=== PATIENT | female | born 1960 | race Caucasian/White ===

== ENCOUNTER 2019-06-25 20:44 | Observation (INO) | payer MEDICARE, SELFPAY ==
[2019-06-25] VITALS (7 sets, daily range): BP systolic 117–142; BP diastolic 49–62; PULSE 49–99; RESP 16–97; TEMP 36.9; O2SAT 93–100
--- NOTE | ~2019-06-25 | CT_ITS ---
EXAMINATION: CT brain wo con DATE: 06/25/2019 22:00 INDICATION: Altered mental status TECHNIQUE: Computed tomography (CT) of the head was performed without intravenous contrast. The dose- length product was 605.33 mGy-cm. The mA was adjusted according to patient size. Iterative reconstruc tion technique was employed. COMPARISON: None FINDINGS: There are surgical changes of right cataract surgery with o'clock, drainage device. No acut e intracranial hemorrhage, infarction, mass or mass effect. There are scattered mild periventricular and subcortical white matter changes, most likely related to small vessel ischemic disease (microangi opathy). No ventriculomegaly or midline shift. Basilar cisterns are patent. Minimal mucosal thickenin g right maxillary sinus. Mastoids are pneumatized. No depressed skull fractures. IMPRESSION: 1. No acute intracranial abnormality. Reviewed, dictated and finalized at location A. [employer]
--- NOTE | ~2019-06-25 | XR_ITS ---
EXAMINATION: XR chest 1V portable 06/25/2019 22:08 INDICATION: Cough and shortness of breath PROCEDURE: AP portable chest COMPARISON: Comparison to multiple prior studies sequentially, with oldest reviewed study dated 12/22. FINDINGS: The lungs are clear. The cardiomediastinal silhouette is within normal limits. There are no pleural effusions. There is no pneumothorax suspected. Stable appearance to spinal stimulator le ads. IMPRESSION: 1: NO ACUTE CARDIOPULMONARY DISEASE. Reviewed, dictated and finalized at location A. [employer] SPECIALIST
--- NOTE | 2019-06-25 21:00 | ED.SOB ---
HPI - SOB/Dyspnea General Chief Complaint: Shortness of Breath/Dyspnea Stated Complaint: cant breath, sick all week Time Seen by Provider: 06/25/19 21:01 Source: patient and family Mode of arrival: wheelchair Limitations: no limitations History of Present Illness HPI Narrative: A 58 y/o female presents to the ED with c/o SOB and generalized weakness. Pt was recently playing [email or web address] with several friends and family members who are sick with the same symptoms. Pt was started on steroids and Tamaflu by her PCP. Per family, pt has also been confused and seeing things. She reports nausea and being a former smoker, but denies a fever and vomiting. Related Data Home Medications Medication Instructions Recorded Confirmed albuterol sulfate 90 mcg/actuation 1 inhalation INHALATION Q4H 05/08/19 aerosol inhaler alprazolam 0.5 mg tablet 0.5 mg PO TID 05/08/19 codeine sulfate 30 mg tablet 90 mg PO Q4H tablet 05/08/19 hydrochlorothiazide 25 mg tablet 25 mg PO DAILY 05/08/19 quetiapine 50 mg tablet 50 mg PO BID 05/08/19 travoprost 0.004 % eye drops 1 drop EACH EYE QPM 05/08/19 Allergies Allergy/AdvReac Type Severity Reaction Status Date / Time nut - unspecified Allergy Intermediate Anaphylacti Verified 05/16/19 08:33 c amlodipine Allergy Mild swelling Verified 05/16/19 08:33 loratadine Allergy Mild rash and Verified 05/16/19 08:33 SOB lamotrigine Allergy Unknown Other Verified 05/16/19 08:33 montelukast Allergy Unknown Rash Verified 05/16/19 08:33 Cat Dander Allergy Mild Unknown Uncoded 05/16/19 08:33 Dog Dander Allergy Mild Unknown Uncoded 05/16/19 08:33 UNKNOWN ANESTHESIA MED Allergy Unknown Unknown Uncoded 05/16/19 08:33 Review of Systems Review of Systems: All systems reviewed & are unremarkable except as noted in HPI and below Constitutional: Constitutional: Denies fever(s) and Reports weakness (generalized) Respiratory: Respiratory: Reports dyspnea Gastrointestinal: Gastrointestinal: Reports nausea and Denies vomiting Neurologic: Comments: Reports: confusion PMFSH Past Medical History Medical History Anxiety Arthritis Asthma Back injury Broken toe Cataracts, bilateral CHF (congestive heart failure) Depression Full dentures GERD (gastroesophageal reflux disease) Glaucoma History of angina Liver enlargement Migraine Pleurisy Pneumonia Short-term memory loss Sinus problem Spinal cord stimulator status UTI (urinary tract infection) Surgical History Surgical History H/O left knee surgery H/O spinal fusion History of tonsillectomy Family History Family History Father Family history of coronary artery disease Grandparent Family history of coronary artery disease Social History Social History (Updated 06/25/19 @ 21:11 by Iqra Jaramillo) Smoking status: Former smoker Second hand tobacco smoke exposure: No Alcohol intake: never Comments PCP: Dr. Stone Exam Narrative: Exam Narrative: APPEARANCE: No acute distress, nontoxic, resting in bed EYES: PERRL HEENT: Normocephalic, atraumatic, bilateral turbinates boggy, mild erythema no exudate posterior pharynx, oral mucosa dry RESPIRATORY: No respiratory distress wheezing in the bilateral upper lung ortega, no rhonchi or rales CARDIOVASCULAR: Regular rate and rhythm without murmurs rubs or gallops. ABDOMINAL: Soft, nontender, nondistended, no rebound or guarding MUSCULOSKELETAl: Moves all extremities. No clubbing, cyanosis or edema. NEURO: Awake and alert x 3. Following commands, speech normal, no focal deficits SKIN:: Warm, dry. No rashes lesions or abrasions PSYCHIATRIC: Normal affect/mood, Course Course Emergency Course: Patient was started on Tamiflu 2 days ago Discussed with patient and family results of workup and diagnosis. Discussed need for admission. Patient and fam
--- NOTE | 2019-06-25 21:02 | ECG_ITS ---
Measurements Intervals [place] Rate: 50 P: 3 MI: 180 QRS: 1 QRSD: 90 T: 17 QT: 518 QTc: 477 Interpretive Statements SINUS BRADYCARDIA VOLTAGE CRITERIA FOR LVH PROLONGED QT INTERVAL BASELINE WANDER- I, II, AVR, AVL, AVF, V1 ABNORMAL ECG Electronically Signed On 06-26-2019 7:14:17 TREASURY ACCOUNTANT by Poli Jama D.O.
[2019-06-25] MEDS: ALBUTEROL SULFATE NEB 2.5 MG/0.5 ML INH 5 MG INHALATION ×2 (21:24→23:36)
[2019-06-25] MEDS: IPRATROPIUM BR 0.02% INH SOLN 0.5 MG/2.5 ML VIAL INHALATION ×2 (21:25→23:36)
[2019-06-25] MEDS: SODIUM CHLORIDE 0.9% IV 1,000 ML 999 ML IV CONT (21:28)
[2019-06-25 21:36] LABS: Basophils Percent Auto 0.5 % (0.2-1.2); Eosinophils Absolute Auto 0.4 K/mm3 (0-0.3); Eosinophils Percent Auto 6.5 % (0-4.4); Hematocrit 40.9 % (37.0-47.0); Hemoglobin 13.1 g/dL (12.0-15.0); Immature Granulocyte Absolute 0.01 K/mm3 (0.00-0.031); Immature Granulocyte Percent A 0.2 % (0-0.5); Immature Platelet Fraction Pct 3.8 % (0.9-11.2); Lymphocytes Absolute Auto 2.16 K/mm3 (0.9-3.2); Mean Corpuscular Hemoglobin 31.3 pg (26-34); Mean Corpuscular Volume 97.6 fl (80-100); Mean Platelet Volume 11.1 fl (7.4-10.4); Monocytes Absolute Auto 0.5 K/mm3 (0.1-0.6); Monocytes Percent Auto 8.9 % (2.6-8.5); Neutrophils Absolute Auto 2.7 K/mm3 (1.3-6.7); Neutrophils Percent Auto 46.9 % (45.5-73.1); Platelet Count Result 94 k/mm3 (150-375); Red Blood Count 4.19 M/mm3 (4.2-5.4); Red Cell Distribution Width 15.5 % (11.5-14.5); White Blood Count 5.8 K/mm3 (4.5-10.0)
[2019-06-25 21:37] LABS: Alveolar/Arterial O2 Gradient 36.3 mmHg; Base Excess ABG -1.1 mEq/l (+/-2.0); Fractional Inspired Oxygen 21 %; HCO3 ABG 23.8 mEq/l (22.0-26.0); Oxygen Content ABG 17.1 %vol (16.0-22.0); Oxygen Saturation ABG 92.6 % (95.0-100.0); PCO2 ABG 40.4 mmHg (35.0-45.0); PO2 ABG 65.1 mmHg (80.0-100.0); Total Hemoglobin 13.2 g/dL (12.0-18.0); pH ABG 7.388 (7.350-7.450)
[2019-06-25 21:38] LABS: Device ROOM AIR; Modified Allen's Test Pass; Site Drawn LEFT RADIAL
[2019-06-25 21:39] LABS: Add Urine Microscopic? YES; Appearance Urine Clear (Clear); Bacteria Urine Trace /hpf; Bilirubin Urine Negative (Negative); Blood Urine Negative (Negative); Color Urine Yellow (Yellow); Glucose Urine UA Negative (Negative); Hyaline Casts Urine 15-19 /lpf; Ketones Urine Negative (Negative); Leukocyte Esterase Ur Negative LEU/UL (Negative); Mucus Urine Moderate /lpf; Nitrate Urine Negative (Negative); Protein Urine Negative (Negative); RBC Urine 0-2 /hpf (0-2); Specific Grav Ur 1.018 (1.001-1.035); Squamous Epithelial Cell Urine Rare /hpf (Few); WBC Urine 0-3 /hpf
[2019-06-25 21:44] LABS: INR 1.5; Lactic Acid Reflex 2.4 mmol/L (0.7-2.1); Prothrombin Time 17.7 Seconds (11.1-14.7)
[2019-06-25 21:45] LABS: Alanine Aminotransferase 19 U/L (4-35); Alkaline Phosphatase 92 U/L (38-126); Aspartate Amino Transferase 47 U/L (14-36); Bilirubin,Total 1.6 mg/dL (0.2-1.3); Blood Urea Nitrogen 9 mg/dL (7-17); Calcium 7.9 mg/dL (8.4-10.2); Carbon Dioxide 22 mmol/L (22-30); Chloride 103 mmol/L (98-107); Estimated CRCL calculation 69 ml/min; Estimated Glomerular Filt Rate > 60; Glucose 127 mg/dL (65-105); Potassium 3.9 mmol/L (3.4-5.0); Sodium 138 mmol/L (137-145)
[2019-06-25 21:57] LABS: NT Pro B Type Natriuretic Pept 929 PG/ML (5-100); Troponin I < 0.012 ng/mL (0.000-0.034)
[2019-06-25 23:58] LABS: Ammonia 13 umol/L (9-30)
[2019-06-26] VITALS (13 sets, daily range): BP systolic 106–153; BP diastolic 42–89; PULSE 58–75; RESP 14–22; TEMP 36.7–37.1; O2SAT 94–96; BMI 32.3
[2019-06-26 00:32] LABS: Reflex Lactic Acid Yes or No Add Lactic
[2019-06-26 00:59] LABS: Lactic Acid 3.2 mmol/L (0.7-2.1)
--- NOTE | 2019-06-26 01:20 | ADMGEN ---
This patient, Melissa Redding, was admitted to [facility] Surg Room 303-01. Patient/family oriented to hospital policies and general routines including ID bracelet, bed and alarms, visiting hours, pain management, procedures, bathroom and other care routines, personal items, smoking policy, room service/diet, and visiting hours. Valuables list has been completed. Information on how to activate the Rapid Response Team has been discussed. Patient/Family are encouraged to report perceived risks to care and to ask questions if they do not understand what they are told or what they should do.
[2019-06-26] MEDS: SODIUM CHLORIDE 0.9% IV 1,000 ML 100 ML IV CONT (01:48)
--- NOTE | 2019-06-26 03:01 | PM.IMHP ---
H&P: HPI History of Present Illness Chief complaint: Hallucinations, shortness of breath and cough Narrative: Date and time of patient contact: 06/26/2019 at 3:30 a.m. Melissa Redding is a 58 year old female with a past medical history of depression, chronic pain, and chronic short-term memory loss presented to the ER from home due to confusion, shortness of breath and cough. Source of information is from ER records, past medical records and patient report. The patient has been having cough and cold symptoms for 7 days. She had had several family members that were ill with the same symptoms. She was evaluated by her primary care physician and started on Tamiflu of which she has taken 4 days of dosing. The patient states she did not get any steroids post continued on her home breathing treatments and nebulizers. She reports her cough is dry/nonproductive. She has been having some sore throat associated with her cough. She has had decreased appetite and decreased fluid intake. She has been extremely fatigued did not wanted to get out of bed for the last week. She had a flu swab performed in the ER which was negative. She denies any fevers and denies any chills out of proportion to her usual. She had her chronic pain but denies any increased arthralgias or myalgias. She has not been having any nausea or vomiting. She reports normal bowel movements. She has had occasional stress incontinence due to the degree of her coughing. The patient was brought in by her due to patient having some slurred speech in being confused. The patient was evidently having vivid hallucinations. She was also having very vivid dreams that were disturbing. At the time of my evaluation the patient appeared to be back to her baseline. Review of Systems Review of Systems: Narrative: Except as documented in the HPI, all other systems were reviewed and are negative. 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 Splenomegaly Thrombocytopenia UTI (urinary tract infection) Surgical History Surgical History (Updated 06/26/19 @ 03:18 by Lizette Rasmussen DO) H/O left knee surgery Arthroscopic H/O spinal fusion 8 spinal surgeries including cervical and lumbar procedures History of tonsillectomy Spinal cord stimulator status Family History Family History (Updated 06/26/19 @ 03:50 by Lizette Rasmussen DO) Father Dementia Coronary artery disease Sibling , Sister Breast cancer Brain aneurysm Sibling , Brother had stomach cancer Stomach cancer Mother Glaucoma Social History Social History (Updated 06/26/19 @ 04:15 by Lizette Rasmussen DO) Social History: Primary care physician: Dr. Joe Stone Code status: Full code Smoking packs per day: 1 Smoking cigarettes per day: 20.0 Years smoked: 19 Smoking pack-years: 19.00 Smoking status: Former smoker Second hand tobacco smoke exposure: No Alcohol intake: never Alcohol use details: Patient rarely drinks alcohol. Substance use: current Substance use type: marijuana Other substance usage details: In the past the patient reported that she used marijuana about once a month Additional living arrangements comments: The patient lives with her life partner of over 30 years. She does not have any children. 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
[2019-06-26] MEDS: SODIUM CHLORIDE 0.9% IV 1,000 ML 999 ML IV CONT ×2 (04:00→05:33)
[2019-06-26] MEDS: LEVOTHYROXINE SODIUM 75 MCG TABLET PO (05:33)
[2019-06-26] MEDS: methylPREDNISolone SOD SUCC 125 MG VIAL 60 MG IV PUSH (05:35)
[2019-06-26 06:53] LABS: Lactic Acid Reflex 2.6 mmol/L (0.7-2.1)
[2019-06-26] MEDS: IPRATROPIUM BR 0.02% INH SOLN 0.5 MG/2.5 ML VIAL INHALATION ×3 (07:51→20:04)
[2019-06-26] MEDS: ALBUTEROL SULFATE NEB 2.5 MG/0.5 ML INH 5 MG INHALATION ×3 (07:51→20:04)
[2019-06-26] MEDS: hydroCHLOROthiazide 25 MG TABLET PO (08:49)
[2019-06-26] MEDS: lamoTRIgine 100 MG TABLET PO (08:49)
[2019-06-26] MEDS: TIMOLOL MALEATE 0.5% OP SOLN 5 ML BTL 1 DROP EACH EYE (08:50)
[2019-06-26] MEDS: POTASSIUM CHLORIDE 20 MEQ TABLET.ER PO ×2 (08:50→17:30)
[2019-06-26] MEDS: PANTOPRAZOLE 40 MG TABLET PO (08:50)
--- NOTE | 2019-06-26 13:02 | PM.DS ---
DS: Diagnosis Admitting Diagnosis Admitting Diagnosis: Toxic encephalopathy Discharge Diagnosis (1) Toxic metabolic encephalopathy: Code(s): G92 - Toxic encephalopathy Status: Acute Assessment and Plan: Due to a combination acute viral illness and Tamiflu. Close to baseline except for some visual hallucinations Spouse wishes to take her home (2) Acute upper respiratory infection: Code(s): J06.9 - Acute upper respiratory infection, unspecified Status: Acute Assessment and Plan: Likely viral upper respiratory tract infection resulting in COPD exacerbation. The patient is influenza negative and him a fluid has been discontinued. (3) COPD exacerbation: Code(s): J44.1 - Chronic obstructive pulmonary disease with (acute) exacerbation Status: Acute Assessment and Plan: Lungs are clear Discontinue steroids Symptomatic treatment only (4) QT prolongation: Code(s): R94.31 - Abnormal electrocardiogram [ECG] [EKG] Status: Acute Assessment and Plan: Corrected QT interval 477 Resume fluoxetine upon discharge and consider monitoring electrocardiogram is outpatient Patient and spouse are unaware of a diagnosis of dementia Given her history of traumatic brain injury and mental status changes including hallucinations with a simple viral illness she may benefit from cognitive evaluation. (5) Lactic acidemia: Code(s): E87.2 - Acidosis Status: Acute DS: Summary Hospital Course Reason for hospitalization: Cough dyspnea confusion Hospital Course: 58-year-old female with history of traumatic brain injury and depression with anxiety presented emergency room with few days history of cough dyspnea confusion. She was started on Tamiflu approximately 4 days prior to admission for influenza. Her states that the patient became confused so she brought to the emergency department. She was having some hallucinations. Tamiflu was discontinued. She was given IV steroids for wheezing. IV fluid overnight. By day of discharge she was alert oriented to person place and time. She was up and about ambulating independently and toileting independently. She had an episode of visual hallucination that was not alarming to her on the morning of discharge. Note that she had lactic acidemia with a normal anion gap. She does have advanced cirrhosis with portal hypertension. Time Spent with Patient Time attestation: Total time spent providing and/or coordinating discharge services: 35 min Exam Narrative: Exam Narrative: Elderly female lying comfortably in her hospital bed. Pleasant and cooperative Sclerae nonicteric. Pharyngeal mucosa pink and intact. Neck without JVD Chest clear to auscultation. Normal effort. Heart regular rate no murmurs. Abdomen protuberant but soft. Good bowel sounds. Nontender. No mass. Extremities without edema cyanosis or clubbing. Musculoskeletal tone and strength symmetric. No tremors. Neurologic cranial nerves intact to inspection Psychiatric alert. Oriented to person place and time, including month and year. DS: Data Data Completed and Pending Labs on day of discharge: Labs from last 24 hours 06/26/19 06/26/19 06/25/19 06:37 00:42 23:40 WBC RBC Hgb Hct MCV MCH MCHC RDW Plt Count MPV Immature Gran % (Auto) Neut % (Auto) Lymph % (Auto) [place] % (Auto) Eos % (Auto) Baso % (Auto) Lymph # (Auto) [place] # (Auto) Eos # (Auto) Baso # (Auto) Abs Immat Gran (auto) Absolute Neuts (auto) Absolute Nucleated RBC Nucleated RBC % % Immature Plt Fraction PT INR APTT Puncture Site ABG pH ABG pCO2 ABG pO2 ABG PO2/FiO2 Ratio ABG HCO3 ABG O2 Saturation ABG O2 Content ABG Base Excess A-a Gradient Oxyhemoglobin Total Hemoglobin O2 Delivery Device O2 Liters/Min FiO2 Sodium Potassium Chloride Carb
--- NOTE | 2019-06-26 14:07 | PM.IMPN ---
Progress Note: A&P Assessment and Plan (1) Toxic metabolic encephalopathy: Code(s): G92 - Toxic encephalopathy Status: Acute Assessment and Plan: Due to a combination acute viral illness and Tamiflu. Close to baseline except for some visual hallucinations (which she has experienced in the past when ill) (2) Acute upper respiratory infection: Code(s): J06.9 - Acute upper respiratory infection, unspecified Status: Acute Assessment and Plan: Likely viral upper respiratory tract infection resulting in COPD exacerbation. Tamiflu discontinued (3) COPD exacerbation: Code(s): J44.1 - Chronic obstructive pulmonary disease with (acute) exacerbation Status: Acute Assessment and Plan: Lungs are clearing Wean steroids Symptomatic treatment only (4) QT prolongation: Code(s): R94.31 - Abnormal electrocardiogram [ECG] [EKG] Status: Acute Assessment and Plan: Corrected QT interval 477 Resume fluoxetine upon discharge and consider monitoring electrocardiogram is outpatient Patient and spouse are unaware of a diagnosis of dementia Given her history of traumatic brain injury and mental status changes including hallucinations with a simple viral illness she may benefit from cognitive evaluation. (5) Lactic acidemia: Code(s): E87.2 - Acidosis Status: Acute Subjective Date/time seen: 06/26/19 14:07 Interval history: Appetite at baseline (fair). Drinking well. Episode of hallucination this AM. No cp. No sob at rest. Dry cough, mild. Mild WATERMAN. No gi/gu c/o. Initially was going to go home but had second thoughts after initially asserting that she wanted to take the patient home. Review of Systems Review of Systems: All systems reviewed & are unremarkable except as noted in HPI and below Exam Narrative: Exam Narrative: HEENT: EOMI, PERRL, pharyngeal mucosa pink and intact NECK: No JVD CHEST: Coarse BS. NL effort HEART: NL S1/S2, regular, no murmur ABDOMEN: BS+, soft, nontender, no mass, no bruits EXTREMITIES: No cyanosis, edema, or clubbing NEUROLOGIC: CN intact and symmetric to inspection. MUSCULOSKELETAL: Tone and strength symmetric. No tremors PSYCH: Alert. Oriented to person, place, and time (including year and month) Objective Data Vital Signs Vital Signs: Vital Signs - 24 hr 06/25/19 20:47 06/25/19 20:58 06/25/19 21:34 Temperature 98.5 F Pulse Rate 53 L 51 L 49 L Respiratory Rate 24 H 16 22 H Blood Pressure 131/49 L 142/62 H Pulse Oximetry 94 93 06/25/19 21:42 06/25/19 23:36 06/25/19 23:50 Temperature Pulse Rate 55 L 99 92 Respiratory Rate 19 18 18 Blood Pressure Pulse Oximetry 06/25/19 23:53 06/26/19 00:57 06/26/19 01:05 Temperature 98.0 F Pulse Rate 64 72 67 Respiratory Rate 97 H 14 20 Blood Pressure 117/56 L 106/56 L 110/42 L Pulse Oximetry 100 94 96 06/26/19 06:00 06/26/19 07:54 06/26/19 07:55 Temperature 98.4 F Pulse Rate 63 62 62 Respiratory Rate 18 18 18 Blood Pressure 126/47 L Pulse Oximetry 95 95 06/26/19 08:02 06/26/19 13:37 06/26/19 13:48 Temperature Pulse Rate 65 58 L 61 Respiratory Rate 18 18 18 Blood Pressure Pulse Oximetry Intake/Output Intake/Output: Intake & Output 06/23/19 06/24/19 06/25/19 06/26/19 23:59 23:59 23:59 23:59 Intake Total 1000 1580 Output Total 0 Balance 1000 1580 Meds/Results Medications: Active Medications Generic Name Dose Route Start Last Admin Trade Name Freq PRN Reason Stop Dose Admin Acetaminophen 650 mg 06/26/19 08:51 Tylenol Tablet PO Q6H PRN Mild Pain (1-3) or Fever Albuterol 5 mg 06/26/19 08:00 06/26/19 13:34 Albuterol Sulf Neb 2.5mg/0.5ml INHALATION 5 mg Q6HRT DANTE Administration Hydrochlorothiazide 25 mg 06/26/19 09:00 06/26/19 08:49 Hydrochlorothiazide PO 25 mg DAILY DANTE Administration Sodium Chloride 1,000 mls @ 100 mls/hr 06/26/19 00:25 06/26/19 01
[2019-06-26] MEDS: ACETAMINOPHEN 325 MG TABLET 650 MG (17:28)
[2019-06-26] MEDS: LATANOPROST 0.005% OP SOLN 2.5 ML BTL 1 DROP EACH EYE (21:12)
[2019-06-27] MEDS: GUAIFENESIN 200 MG/10 ML UDC PO ×2 (00:29→06:40)
[2019-06-27 01:56] VITALS: PULSE 69; RESP 20
[2019-06-27] MEDS: ALBUTEROL SULFATE NEB 2.5 MG/0.5 ML INH 5 MG INHALATION ×2 (01:56→08:45)
[2019-06-27] MEDS: IPRATROPIUM BR 0.02% INH SOLN 0.5 MG/2.5 ML VIAL INHALATION ×2 (01:56→08:45)
[2019-06-27 02:06] VITALS: PULSE 71; RESP 20
[2019-06-27 06:00] VITALS: BP 161/62; PULSE 78; RESP 20; TEMP 36.6; O2SAT 96
[2019-06-27 06:26] LABS: Basophils Percent Auto 0.1 % (0.2-1.2); Hematocrit 36.3 % (37.0-47.0); Hemoglobin 12.3 g/dL (12.0-15.0); Immature Granulocyte Absolute 0.07 K/mm3 (0.00-0.031); Immature Granulocyte Percent A 0.9 % (0-0.5); Immature Platelet Fraction Pct 4.9 % (0.9-11.2); Lymphocytes Absolute Auto 1.35 K/mm3 (0.9-3.2); Lymphocytes Percent Auto 17.3 % (18.3-44.2); Mean Corpuscular HGB Conc 33.9 g/dl (32-36); Mean Corpuscular Hemoglobin 31.9 pg (26-34); Mean Corpuscular Volume 94.3 fl (80-100); Monocytes Absolute Auto 0.5 K/mm3 (0.1-0.6); Monocytes Percent Auto 6.9 % (2.6-8.5); Neutrophils Absolute Auto 5.8 K/mm3 (1.3-6.7); Neutrophils Percent Auto 74.8 % (45.5-73.1); Platelet Count Result 81 k/mm3 (150-375); Red Blood Count 3.85 M/mm3 (4.2-5.4); Red Cell Distribution Width 14.9 % (11.5-14.5); White Blood Count 7.8 K/mm3 (4.5-10.0)
[2019-06-27 06:38] LABS: Alanine Aminotransferase 18 U/L (4-35); Albumin Level 2.8 g/dL (3.5-5.1); Alkaline Phosphatase 89 U/L (38-126); Aspartate Amino Transferase 38 U/L (14-36); Bilirubin,Total 1.2 mg/dL (0.2-1.3); Blood Urea Nitrogen 8 mg/dL (7-17); Calcium 8.2 mg/dL (8.4-10.2); Carbon Dioxide 23 mmol/L (22-30); Chloride 105 mmol/L (98-107); Estimated CRCL calculation 81 ml/min; Estimated Glomerular Filt Rate > 60; Glucose 93 mg/dL (65-105); Potassium 3.9 mmol/L (3.4-5.0); Sodium 138 mmol/L (137-145)
[2019-06-27] MEDS: LEVOTHYROXINE SODIUM 75 MCG TABLET PO (06:40)
[2019-06-27] MEDS: predniSONE 20 MG TABLET 40 MG PO (08:38)
[2019-06-27] MEDS: PANTOPRAZOLE 40 MG TABLET PO (08:39)
[2019-06-27] MEDS: POTASSIUM CHLORIDE 20 MEQ TABLET.ER PO (08:39)
[2019-06-27] MEDS: hydroCHLOROthiazide 25 MG TABLET PO (08:39)
[2019-06-27] MEDS: lamoTRIgine 100 MG TABLET PO (08:40)
[2019-06-27] MEDS: TIMOLOL MALEATE 0.5% OP SOLN 5 ML BTL 1 DROP EACH EYE (08:40)
[2019-06-27 08:46] VITALS: PULSE 74; RESP 18
== END 2019-06-27 10:50 | disposition home or self-care (01) ==
LOC: ANHED 21:04 → ANH3MEDSUR 06-26 00:44
PROVIDERS: Admitting Provider Internal Medicine; Emergency Provider Emergency Medicine; PCP Family Medicine; Visit Provider Internal Medicine
DX: J44.1 Chronic obstructive pulmonary disease with (acute) exacerbation (principal); G92 Toxic encephalopathy; T37.5X5A Adverse effect of antiviral drugs, initial encounter; J06.9 Acute upper respiratory infection, unspecified; B97.89 Other viral agents as the cause of diseases classified elsewhere; R94.31 Abnormal electrocardiogram [ECG] [EKG]; E87.2 Acidosis; R41.3 Other amnesia; Z87.820 Personal history of traumatic brain injury; D69.6 Thrombocytopenia, unspecified; K76.6 Portal hypertension; K74.60 Unspecified cirrhosis of liver; F41.8 Other specified anxiety disorders; E78.5 Hyperlipidemia, unspecified; I10 Essential (primary) hypertension; G89.29 Other chronic pain; Z87.891 Personal history of nicotine dependence; Z98.1 Arthrodesis status
CPT/HCPCS: 36415; 36600; 51701; 70450; 71045; 80053; 81001; 82140; 82805; 83605; 83880; 84484; 85025; 85055; 85610; 85730; 87040; 87804; 93005; 94640; 96361; 96374; 99285; A9270; G0378; J2930; J7030; J7512

== ENCOUNTER 2019-07-14 05:34 | Observation (INO) | payer MEDICARE, SELFPAY ==
[2019-07-14] VITALS (42 sets, daily range): BP systolic 146–198; BP diastolic 60–95; PULSE 76–114; RESP 12–26; TEMP 36.7–38.1; O2SAT 89–100; BMI 30.4
--- NOTE | ~2019-07-14 | CT_ITS ---
EXAMINATION: CT abdomen pelvis w con EXAM DATE: 07/14/2019 06:55 INDICATION: Low abdominal pain, nausea and vomiting. Symptoms 6 hours. Appendectomy. TECHNIQUE: Spiral CT of the abdomen and pelvis was performed following intravenous injection of 100 m L Omnipaque 350. Axial, coronal and sagittal images were reviewed. The dose-length product (DLP) fo r this examination was 1138.90 mGy-cm. The exposure was tailored according to patient size (auto mA exposure control), and iterative reconstruction (ASIR) was used as additional dose reduction techniqu e. Comparison is made to prior examination from 03/01/2017. FINDINGS: Again there is small amount of perihepatic and pericholecystic fluid, small amount of free pelvic fluid, with interval decrease compared to previous examination. There is a nodular liver conto ur consistent with cirrhosis. Gallbladder is moderately distended but without calcified cholelithiasi s. The liver, spleen, adrenal glands and pancreas are otherwise unremarkable but recommend excluding acute pancreatitis with laboratory evaluation.. There is mild common bile duct dilation without intr ahepatic biliary duct dilation. Portal and splenic veins are patent. Splenorenal collateralization, e vidence of portal hypertension. Kidneys enhance symmetrically. There is no hydronephrosis. There is a left renal 1.8 cm cyst. The uterus is unremarkable. The bladder is unremarkable. There is no re troperitoneal or pelvic lymphadenopathy. There is mild scattered arteriosclerotic disease. Reportedly patient has had appendectomy, but structure which could be appendix (or its stump given hi story) is identified in the right lower quadrant. There is mild fat stranding surrounding the ascendi ng colon and hepatic flexure, possible mild colitis. The stomach and small bowel are unremarkable. There is expected amount of colonic stool. There is mild to moderate colonic diverticulosis. There i s no adjacent inflammatory change to suggest diverticulitis. The heart is normal in size. There are no pericardial or pleural effusions. The lung bases are unremarkable. There are no osteoblastic or osteolytic lesions identified. Lumbar fusion hardware, laminectomies. There are no osteoblastic or o steolytic lesions identified. IMPRESSION: 1. Cirrhosis, portal hypertension, small perihepatic and free pelvic fluid. 2. Mild nonspecific fat stranding surrounding ascending colon and pancreas; possible colitis and rec ommend checking amylase/lipase levels. Reviewed, dictated and finalized at location A. IMPRESSION: 1. Cirrhosis, portal hypertension, small perihepatic and free pelvic fluid. 2. Mild nonspecific fat stranding surrounding ascending colon and pancreas; po ssible colitis and recommend checking amylase/lipase levels.
--- NOTE | ~2019-07-14 | XR_ITS ---
XR knee RT 2V, XR knee LT 2V 07/14/2019 20:30 Indication: Status post fall. Knee pain. Procedure: 2 views of each knee Comparison: No prior studies for comparison. Findings: There is mild-moderate osteoarthritis. There are transverse lucencies at the metaphysis yosef aterally. There is a small-moderate right joint effusion. There is chondrocalcinosis. There are loose bodies posterior to the left knee. Impression: 1: Transverse metaphyseal lucencies of the distal femur bilaterally. Nondisplaced fracture cannot be excluded. Recommend correlation with MRI. 2: Mild-moderate osteoarthritis. 3: Small-moderate right knee effusion. Reviewed, dictated and finalized at location A. Impression: 1: Transverse metaphyseal lucencies of the distal femur bilaterally. Nondisplac ed fracture cannot be excluded. Recommend correlation with MRI. 2: Mild-moderate osteoarthritis. 3: Small-moderate right knee effusion. Impression: 1: Transverse metaphyseal lucencies of the distal femur bilaterally. Nondisplac ed fracture cannot be excluded. Recommend correlation with MRI. 2: Mild-moderate osteoarthritis. 3: Small-moderate right knee effusion.
--- NOTE | ~2019-07-14 | NM_ITS ---
EXAMINATION: NM hepatobiliary w pharm DATE: 07/14/2019 15:47 INDICATION: Abdominal pain. COMPARISON: CT abdomen and pelvis 07/14/2019, ultrasound 07/14/2019 TECHNIQUE: 5 mCi Tc-99m mebrofenin (Choletec) was administered intravenously. Scintigraphic images o f the abdomen were obtained for one hour. Then, 1.7 mcg sincalide (Kinevac) IV was administered, and imaging was continued for 30 minutes. FINDINGS: There is delayed clearance of radiotracer from the blood pool. There is homogeneous tracer uptake by the liver. Activity progresses to the bowel and gallbladder. Gallbladder ejection fraction (GBEF) was less than 10%. Note that most patients with gallbladder dysfunction have GBEF < 35%, whic h overlaps with the broad normal range of 10-90%. IMPRESSION: 1. Delayed clearance of radiotracer from the blood pool, consistent with hepatocellular dysfunction. 2. Low gallbladder ejection fraction, consistent with gallbladder dysfunction and/or chronic cholecys titis. Reviewed, dictated and finalized at location A. IMPRESSION: 1. Delayed clearance of radiotracer from the blood pool, consistent with hepat ocellular dysfunction. 2. Low gallbladder ejection fraction, consistent with gallbladder dysfunction a nd/or chronic cholecystitis.
--- NOTE | ~2019-07-14 | CT_ITS ---
EXAMINATION: CT knee RT wo con DATE: 07/15/2019 13:37 INDICATION: Right knee pain. TECHNIQUE: Computed tomography (CT) of the right knee was performed without intravenous contrast. Aut omated exposure control and iterative reconstruction technique were employed. The dose-length product was 668 mGy-cm (which includes the left knee CT performed the same day). COMPARISON: Right knee radiographs 07/14/2019 FINDINGS: Bone alignment is normal. No fracture. There is moderate osteoarthritis of medial compartme nt and mild osteoarthritis of lateral and patellofemoral compartments. There is chondrocalcinosis of the menisci. There is a small knee joint effusion. IMPRESSION: 1. Moderate right knee osteoarthritis. 2. Small right knee joint effusion. Reviewed, dictated and finalized at location A.
--- NOTE | ~2019-07-14 | CT_ITS ---
EXAMINATION: CT knee LT wo con DATE: 07/15/2019 13:35 INDICATION: Left knee pain. TECHNIQUE: Computed tomography (CT) of the left knee was performed without intravenous contrast. Auto mated exposure control and iterative reconstruction technique were employed. The dose-length product was 668 mGy-cm. COMPARISON: Left knee CT 07/20/2017, radiographs 07/14/2019 FINDINGS: Bone alignment is normal. No fracture. There is moderate tricompartmental osteoarthritis. T here is chondrocalcinosis of the menisci. No knee joint effusion. There are loose bodies in the poste rior recess of the knee joint. IMPRESSION: 1. Moderate left knee osteoarthritis. 2. Left knee joint loose bodies. Reviewed, dictated and finalized at location A.
--- NOTE | ~2019-07-14 | US_ITS ---
EXAMINATION: US abdomen limited EXAM DATE: 07/14/2019 08:15 INDICATION: Epigastric pain and vomiting. TECHNIQUE: Multiple grayscale and Doppler images of the abdomen right upper quadrant were obtained (b y a technologist who performed the scan) and subsequently reviewed. Comparison is made to prior exami nation from 02/21/2016. FINDINGS: The pancreatic head and body are normal in appearance. The pancreatic tail is not visualized. Small amount of free perihepatic fluid. Mildly nodular liver contour consistent with cirrhosis. There are no focal liver lesions identified. There is no evidence of intrahepatic biliary duct dilation. Po rtal venous flow was seen in the hepatopedal, normal direction and has normal Doppler waveform. No r ight-sided hydronephrosis. Common bile duct measures 10 mm, which is normal. Gallbladder is moderately distended. There is small focal region of pericholecystic fluid. No cholelithiasis. Technologist performing exam reports nicky ent did not demonstrate sonographic Flannery's sign. Please note that this sign is less reliable in pa tients who have received pain medication. IMPRESSION: Moderately distended gallbladder with small pericholecystic fluid. Mildly dilated common bile duct but no cholelithiasis. Nonspecific findings in absence of sonographic Flannery's sign, could be from underlying cirrhosis. Reviewed, dictated and finalized at location B.
[2019-07-14] MEDS: SODIUM CHLORIDE 0.9% IV 1,000 ML 999 ML IV CONT (05:49)
[2019-07-14] MEDS: MORPHINE SULFATE 4 MG/ML INJ IV PUSH (05:49)
[2019-07-14] MEDS: ONDANSETRON INJ 4 MG/2 ML VIAL IV PUSH (05:49)
[2019-07-14 06:08] LABS: Basophils Percent Auto 0.2 % (0.2-1.2); Eosinophils Absolute Auto 0.2 K/mm3 (0-0.3); Eosinophils Percent Auto 1.8 % (0-4.4); Hematocrit 41.2 % (37.0-47.0); Hemoglobin 13.6 g/dL (12.0-15.0); Immature Granulocyte Absolute 0.04 K/mm3 (0.00-0.031); Immature Granulocyte Percent A 0.4 % (0-0.5); Lymphocytes Absolute Auto 1.57 K/mm3 (0.9-3.2); Lymphocytes Percent Auto 15.5 % (18.3-44.2); Mean Corpuscular Hemoglobin 31.5 pg (26-34); Mean Corpuscular Volume 95.4 fl (80-100); Mean Platelet Volume 10.1 fl (7.4-10.4); Monocytes Absolute Auto 1.3 K/mm3 (0.1-0.6); Neutrophils Percent Auto 69.1 % (45.5-73.1); Platelet Count Result 96 k/mm3 (150-375); Red Blood Count 4.32 M/mm3 (4.2-5.4); Red Cell Distribution Width 16.4 % (11.5-14.5); White Blood Count 10.1 K/mm3 (4.5-10.0)
[2019-07-14 06:19] LABS: Alanine Aminotransferase 33 U/L (4-35); Albumin Level 3.1 g/dL (3.5-5.1); Alkaline Phosphatase 94 U/L (38-126); Aspartate Amino Transferase 51 U/L (14-36); Blood Urea Nitrogen 15 mg/dL (7-17); Calcium 8.9 mg/dL (8.4-10.2); Carbon Dioxide 23 mmol/L (22-30); Chloride 109 mmol/L (98-107); Estimated Glomerular Filt Rate > 60; Glucose 97 mg/dL (65-105); Lipase 173 U/L (23-300); Potassium 3.4 mmol/L (3.4-5.0); Sodium 139 mmol/L (137-145)
--- NOTE | 2019-07-14 06:30 | ED.GENADULT ---
HPI - General Adult General Chief complaint: Abdominal Pain Stated complaint: abd pain Time Seen by Provider: 07/14/19 06:01 Source: patient History of Present Illness HPI narrative: Patient is a 80 y/o female complaining of generalized abdominal pain and vomiting for about 6 hours. She rates her pain as cramping and rates it as 9/10. There is no alleviating or exacerbating factor. There is no pain radiation. She vomited about 8-9 times. She has no diarrhea. Related Data Home Medications Medication Instructions Recorded Confirmed alprazolam 0.5 mg tablet 0.5 mg PO TID PRN 05/08/19 07/14/19 travoprost 0.004 % eye drops 1 drop LEFTEYE QPM 05/08/19 07/14/19 levothyroxine 75 mcg PO DAILY 06/26/19 07/14/19 sumatriptan succinate 100 mg PO BID PRN 06/26/19 07/14/19 acetaminophen 650 mg PO Q6H PRN 07/14/19 07/14/19 Allergies Allergy/AdvReac Type Severity Reaction Status Date / Time nut - unspecified Allergy Intermediate Anaphylacti Verified 07/05/19 14:13 c amlodipine Allergy Mild swelling Verified 07/05/19 14:13 lamotrigine Allergy Unknown Other Verified 07/05/19 14:13 montelukast Allergy Unknown Rash Verified 07/05/19 14:13 oseltamivir [From Tamiflu] AdvReac Severe Unknown Verified 07/05/19 14:13 UNKNOWN ANESTHESIA MED Allergy Unknown Unknown Uncoded 07/05/19 14:13 Review of Systems Constitutional: Constitutional: Denies chills, Denies fever(s), Denies headache(s) and Denies weakness Eyes: Eyes: Denies blurry vision ENT: Denies headache(s) and Denies neck pain Cardiovascular: Cardiovascular: Denies chest pain and Denies dyspnea Respiratory: Respiratory: Denies cough and Denies dyspnea Gastrointestinal: Gastrointestinal: Reports abdominal pain, Denies diarrhea, Reports nausea and Reports vomiting Genitourinary: Genitourinary: Denies hematuria and Denies dysuria Musculoskeletal: Musculoskeletal: Denies back pain and Denies neck pain Neurologic: Denies headache(s) and Denies weakness PMFSH Past Medical History Medical History Anxiety Arthritis Asthma Back injury Broken toe Cataracts, bilateral CHF (congestive heart failure) Poorly documented Cirrhosis, nonalcoholic With a small volume of ascites noted on CT scan from February 2017 Depression Essential hypertension Full dentures GERD (gastroesophageal reflux disease) Glaucoma History of angina Hyperlipidemia Migraine Pneumonia Portal hypertension Short-term memory loss 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 Joe Stone Code status: Full code Smoking packs per day: 1 Smoking cigarettes per day: 20.0 Years smoked: 20 Smoking pack-years: 20.00 Smoking status: Former smoker Tobacco type: cigarettes Second hand tobacco smoke exposure: No Alcohol intake: never Substance use: current Substance use type: marijuana Other substance usage details: In the past the patient reported that she used marijuana about once a month Last use: 06/23/19 Additional living arrangements comments: The patient lives with her life partner of over 30 years. She does not have any children. Additional occupation/education comments: She used to work in a hospital reg
[2019-07-14] MEDS: LORAZEPAM INJ 2 MG/ML VIAL 1 MG IV PUSH (06:31)
--- NOTE | 2019-07-14 06:34 | PC.NURSE ---
Patient being taken to CT.
[2019-07-14 07:38] LABS: Add Urine Microscopic? YES; Appearance Urine Clear (Clear); Bilirubin Urine Negative (Negative); Blood Urine Negative (Negative); Color Urine Yellow (Yellow); Glucose Urine UA Negative (Negative); Ketones Urine Negative (Negative); Leukocyte Esterase Ur Trace LEU/UL (Negative); Mucus Urine Rare /lpf; Nitrate Urine Negative (Negative); Protein Urine 1+ mg/dL (Negative); RBC Urine 0-2 /hpf (0-2); Squamous Epithelial Cell Urine Occasional /hpf (Few)
[2019-07-14 07:40] LABS: Specific Grav Ur 1.035 (1.001-1.035)
--- NOTE | 2019-07-14 07:40 | PC.NURSE ---
assuming care of pt. Pt is A&Ox4. Pt states her pain is still present but improved. Pt abd soft, tender and non distended. Pt BSx4. Pt has call light in reach. Pt has family at bedside
[2019-07-14 10:47] LABS: Bilirubin Indirect 2.3 mg/dL (0-1.1)
[2019-07-14] MEDS: SODIUM CHLORIDE 0.9% IV 1,000 ML 125 ML IV CONT ×2 (12:46→22:15)
--- NOTE | 2019-07-14 12:58 | ADMGEN ---
This patient, Melissa Redding, was admitted to Medical Room 253-. Patient/family oriented to hospital policies and general routines including ID bracelet, bed and alarms, visiting hours, pain management, procedures, bathroom and other care routines, personal items, smoking policy, room service/diet, and visiting hours. Valuables list has been completed. Information on how to activate the Rapid Response Team has been discussed. Patient/Family are encouraged to report perceived risks to care and to ask questions if they do not understand what they are told or what they should do.
[2019-07-14] MEDS: KETOROLAC 15 MG/ML VIAL (*BKC) IV PUSH (15:44)
--- NOTE | 2019-07-14 16:27 | WPDGICN ---
Assessment and Plan Assessment and plan (1) Abdominal pain: Qualifiers: Abdominal location: generalized Qualified Code(s): R10.84 - Generalized abdominal pain Code(s): R10.9 - Unspecified abdominal pain Status: Acute Assessment and Plan: Abdominal pain now resolved. Etiology undetermined. I cannot exclude this be related to constipation, or some other self-limiting process. Plan is for stool softeners. Consider HIDA scan if pain were to persist. (2) Cirrhosis: Qualifiers: Ascites presence: unspecified Hepatic cirrhosis type: unspecified hepatic cirrhosis Qualified Code(s): K74.60 - Unspecified cirrhosis of liver Code(s): K74.60 - Unspecified cirrhosis of liver Status: Acute Assessment and Plan: Cirrhosis is been present for quite some time. Noted on previous CT scans. The etiology unclear. She denies any significant alcohol intake plan is to obtain some laboratory tests to search for possible etiology. Fatty liver may account for this condition potentially. at this time we will label it is cryptogenic cirrhosis. Elevated LFTs include elevated indirect bilirubin and mild elevation of the AST are likely related to her cirrhosis. (3) COPD exacerbation: Code(s): J44.1 - Chronic obstructive pulmonary disease with (acute) exacerbation Status: Acute (4) Anxiety disorder, unspecified: Qualifiers: Anxiety disorder type: generalized anxiety disorder Qualified Code(s): F41.1 - Generalized anxiety disorder Code(s): F41.9 - Anxiety disorder, unspecified Status: Acute GI Consult Note Consult date/time: 07/14/19 16:27 HPI: Melissa Redding is a 58 year old female seen in evaluation at the request of the emergency room. Patient followed by Dr. Stone. Patient in usual state of health till last evening she developed nausea vomiting and diffuse abdominal pain at midnight. This abated by 5:00 a.m. when she was taken to the emergency room. She states pain was rather diffuse and crampy in nature. Emesis consisted of prior food intake. She denies any bleeding. She denies any fevers. She does not typically have vomiting like this. She reports no unusual dietary intake. No one else in the family has been ill. Past medical history is significant for cryptogenic cirrhosis of the liver. This has been identified by prior CT scans of the abdomen and also seen by CT scan last evening. She suffers with chronic anxiety. Has intermittent panic attacks over the last 25 years. She also has chronic back pain and history of a chronic back injury apparently had pinched nerve. She denies any significant alcohol intake. She states the etiology for her cirrhosis is undetermined. It is unclear if any previous testing has been accomplished. 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
[2019-07-14] MEDS: ALPRAZOLAM 0.5 MG TABLET PO (18:41)
--- NOTE | 2019-07-14 20:14 | PM.IMHP ---
H&P: HPI History of Present Illness Chief complaint: abdominal pain Narrative: Melissa Redding is a 58 year old female who has a history of non alcoholic cirrhosis of the liver. The patient stated that she ate subway last night and when she laid down she felt sick to her stomach [place] continued to vomit all through the night. She said that she vomited at least 6 hours. She rated her abdominal pain 9/10. She said this feels different than her cirrhosis of the liver. She has had no diarrhea. She had a leftover tuna sandwich from subway. Dr. terry has been consulted and HIDA scan was ordered. Dr. terry has already seen the patient. The patient HIDA scan showed that she has a dysfunctional gallbladder. Patient is a no longer nauseated. She is complaining of pain and anxiety. Ativan in the emergency room. Toradol x1 and started on IV fluids. Date of service 07/14/2019 Patient ate this evening without difficulty. The patient stated that she was so weak that she fell in the bathroom floor leading to her calling the ambulance. Both of her knees are now hurting. Review of Systems Review of Systems: Narrative: Tenderness to right upper quadrant. All systems reviewed & are unremarkable except as noted in HPI and below Constitutional: Constitutional: Reports as per HPI and Reports no additional constitutional complaints Eyes: Eyes: Reports as per HPI and Reports no additional eye complaints ENT: Reports system reviewed and no additional complaints, except as documented and Reports Normal hearing present Cardiovascular: Cardiovascular: Reports no additional cardiovascular complaints Respiratory: Respiratory: Reports no additional respiratory complaints and Reports no additional respiratory complaints Gastrointestinal: Gastrointestinal: Reports as per HPI and Reports no additional gastrointestinal complaints Musculoskeletal: Musculoskeletal: Reports no additional musculoskeletal complaints Integumentary/Breasts: Skin/Breast: Reports system reviewed and no additional complaints, except as docu and Reports as per HPI Neurologic: Reports system reviewed and no additional complaints, except as documented, Reports as per HPI and Reports Normal hearing present Psychiatric: Psychiatric: Reports no additional psychiatric complaints and Reports as per HPI Endocrine: Endocrine: Reports no additional endocrine complaints Hematologic/Lymphatic: Hematologic/Lymphatic: Reports no additional hematologic/lymphatic complaints Allergic/Immunologic: Allergic/Immunologic: Reports no additional allergic/immunologic complaints [facility] Past Medical History Medical History (Updated 07/14/19 @ 20:50 by Gracie Magaña NP) Anxiety Arthritis Asthma Back injury Broken toe Multiple Cataracts, bilateral Only the right eye has been extracted and still has a cataract in the left CHF (congestive heart failure) Poorly documented Cirrhosis, nonalcoholic With a small volume of ascites noted on CT scan from February 2017 COPD (chronic obstructive pulmonary disease) COPD exacerbation Depression Essential hypertension Full dentures GERD (gastroesophageal reflux disease) Glaucoma Right eye History of angina Hyperlipidemia Hypothyroidism (acquired) Migraine Pneumonia Portal hypertension Short-term memory loss 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
[2019-07-14] MEDS: LATANOPROST 0.005% OP SOLN 2.5 ML BTL 1 DROP EACH EYE (22:14)
[2019-07-15] MEDS: hydrALAZINE HCL 20 MG/ML VIAL 10 MG IV PUSH (00:19)
[2019-07-15 01:07] VITALS: BP 166/67
[2019-07-15] MEDS: ALPRAZOLAM 0.5 MG TABLET PO (01:11)
[2019-07-15 05:12] LABS: Basophils Percent Auto 0.2 % (0.2-1.2); Eosinophils Absolute Auto 0.3 K/mm3 (0-0.3); Eosinophils Percent Auto 3.1 % (0-4.4); Hematocrit 39.7 % (37.0-47.0); Hemoglobin 12.8 g/dL (12.0-15.0); Immature Granulocyte Absolute 0.03 K/mm3 (0.00-0.031); Immature Granulocyte Percent A 0.3 % (0-0.5); Immature Platelet Fraction Pct 2.2 % (0.9-11.2); Lymphocytes Absolute Auto 2.65 K/mm3 (0.9-3.2); Mean Corpuscular HGB Conc 32.2 g/dl (32-36); Mean Corpuscular Hemoglobin 31.2 pg (26-34); Mean Corpuscular Volume 96.8 fl (80-100); Mean Platelet Volume 10.4 fl (7.4-10.4); Monocytes Absolute Auto 1.3 K/mm3 (0.1-0.6); Monocytes Percent Auto 13.1 % (2.6-8.5); Neutrophils Absolute Auto 5.5 K/mm3 (1.3-6.7); Neutrophils Percent Auto 56.3 % (45.5-73.1); Platelet Count Result 94 k/mm3 (150-375); Red Cell Distribution Width 16.7 % (11.5-14.5); White Blood Count 9.8 K/mm3 (4.5-10.0)
[2019-07-15 05:33] LABS: Alanine Aminotransferase 33 U/L (4-35); Albumin Level 3.1 g/dL (3.5-5.1); Alkaline Phosphatase 82 U/L (38-126); Aspartate Amino Transferase 52 U/L (14-36); Bilirubin,Total 3.2 mg/dL (0.2-1.3); Blood Urea Nitrogen 9 mg/dL (7-17); Calcium 8.4 mg/dL (8.4-10.2); Carbon Dioxide 27 mmol/L (22-30); Chloride 109 mmol/L (98-107); Estimated CRCL calculation 72 ml/min; Estimated Glomerular Filt Rate > 60; Glucose 110 mg/dL (65-105); Magnesium 2.3 mg/dL (1.6-2.3); Potassium 3.4 mmol/L (3.4-5.0); Sodium 140 mmol/L (137-145)
[2019-07-15 05:50] VITALS: BP 171/58; PULSE 92; RESP 18; TEMP 38.3; O2SAT 96
[2019-07-15 06:03] LABS: Thyroid Stimulating Hormone Reflex 0.413 uIU/mL (0.465-4.68)
[2019-07-15] MEDS: LEVOTHYROXINE SODIUM 75 MCG TABLET PO (06:26)
[2019-07-15] MEDS: IBUPROFEN 400 MG TABLET PO (06:27)
[2019-07-15 06:51] LABS: Free T4 Free Thyroxine Reflex 1.46 ng/dL (0.78-2.19)
[2019-07-15 07:27] VITALS: TEMP 36.9
[2019-07-15 07:40] LABS: Total Triiodothyronine (T3) 0.97 NG/ML (0.97-1.69)
[2019-07-15] MEDS: SODIUM CHLORIDE 0.9% IV 1,000 ML 125 ML IV CONT (08:49)
[2019-07-15] MEDS: POTASSIUM CHLORIDE 20 MEQ TABLET.ER PO ×2 (08:59→17:18)
[2019-07-15] MEDS: FLUOXETINE HCL 20 MG CAP 40 MG PO (08:59)
[2019-07-15] MEDS: lamoTRIgine 100 MG TABLET PO (09:00)
--- NOTE | 2019-07-15 09:51 | WPDGIPROGNO ---
Progress Note: A&P Additional Plan Patient alert this morning. Reports diarrhea during the evening. Physical exam reveals her to be afebrile. Lungs are clear. Abdomen is soft. Bowel sounds are present. She is tender in the right upper quadrant. Laboratory testing reveals WBC 9.8, hemoglobin 12.8, hematocrit 39, platelet count 94 K. total bilirubin 3.2. Direct bilirubin 0. AST 52. ALT 33, alk-phos 82. HIDA scan suggest hepatocellular dysfunction, but also possible cholecystitis. Impression 1. Cirrhosis. Most likely cryptogenic. Fatty liver may have contributed. Additional lab testing is pending. 2. Right upper quadrant pain. Abnormal HIDA scan also noted. This is suggestive of possible cholecystitis. Plan is for a surgical opinion. Continue to monitor LFTs. LFTs may be related to her known cirrhosis. But cannot exclude recent change because of gallbladder disease. 3. Anxiety. 4. COPD. 5. Chronic back pain. Plan is to obtain surgical opinion. Otherwise advance to Low-fat diet with fiber supplementation. additional labs to evaluate for cirrhosis are pending. Supportive care only anticipated at this time For her known cirrhosis. Subjective Date/time seen: 07/15/19 09:51 Objective Data Vital Signs Vital Signs: Vital Signs - 24 hr 07/14/19 10:00 07/14/19 10:01 07/14/19 10:15 Temperature Pulse Rate 99 100 99 Respiratory Rate 20 16 14 Blood Pressure 180/63 H Pulse Oximetry 92 92 94 07/14/19 10:30 07/14/19 10:31 07/14/19 10:45 Temperature Pulse Rate 97 99 100 Respiratory Rate 26 H 14 15 Blood Pressure 182/68 H Pulse Oximetry 96 96 93 07/14/19 11:00 07/14/19 11:15 07/14/19 11:30 Temperature Pulse Rate 95 101 H 102 H Respiratory Rate 17 20 22 H Blood Pressure Pulse Oximetry 91 91 91 07/14/19 11:31 07/14/19 11:32 07/14/19 11:45 Temperature Pulse Rate 102 H 98 102 H Respiratory Rate 16 14 21 H Blood Pressure 198/76 H Pulse Oximetry 94 93 93 07/14/19 12:11 07/14/19 12:55 07/14/19 14:00 Temperature 36.8 C 37.0 C Pulse Rate 100 95 91 Respiratory Rate 17 18 18 Blood Pressure 154/68 H 146/60 H Pulse Oximetry 93 96 97 07/14/19 21:48 07/14/19 23:58 07/15/19 01:07 Temperature 38.1 C H Pulse Rate 91 Respiratory Rate 18 Blood Pressure 196/62 H 191/73 H 166/67 H Pulse Oximetry 95 07/15/19 05:50 07/15/19 07:27 Temperature 38.3 C H 36.9 C Pulse Rate 92 Respiratory Rate 18 Blood Pressure 171/58 H Pulse Oximetry 96 Intake/Output Intake/Output: Intake & Output 07/12/19 07/13/19 07/14/19 07/15/19 23:59 23:59 23:59 23:59 Intake Total 2490 1820 Output Total 200 1500 Balance 2290 320 Meds/Results Medications: Active Medications Generic Name Dose Route Start Last Admin Trade Name Freq PRN Reason Stop Dose Admin Albuterol 2 puff 07/14/19 18:23 Proventil Hfa INHALATION Q4HRT PRN shortness of breath or wheezing Alprazolam 0.5 mg 07/14/19 18:23 07/15/19 01:11 Xanax PO 0.5 mg TID PRN Administration Anxiety Fentanyl Citrate 25 mcg 07/14/19 20:12 07/15/19 01:21 Sublimaze IV PUSH 25 mcg Q4H PRN Administration Pain Rated 7-10 Fluoxetine HCl 40 mg 07/15/19 09:00 07/15/19 08:59 Prozac PO 40 mg DAILY DANTE Administration Hydralazine HCl 10 mg 07/15/19 07:30 Apresoline Hcl Inj IV PUSH Q8H PRN Blood Pressure - High SBP >180 Sodium Chloride 1,000 mls @ 125 mls/hr 07/14/19 11:10 07/15/19 08:49 Normal Saline Iv IV CONT 125 mls/hr .Q8H DANTE Administration Piperacillin/Tazobactam/Dextrose 3.375 gm in 50 mls @ 100 mls/hr 07/14/19 17:00 07/15/19 07:16 Zosyn 3.375 Gm/D5w 50ml Pm IVPB Infused Q6HR DANTE Infusion Lamotrigine 100 mg 07/15/19 09:00 07/15/19 09:00 Lamictal PO 100 mg DAILY DANTE Administration Latanoprost 1 drop 07/14/19 21:00 07/14/19 22:14 Xalatan EACH EYE [address] [facility] Admini
[2019-07-15] MEDS: PANTOPRAZOLE 40 MG TABLET PO (11:17)
--- NOTE | 2019-07-15 11:20 | PM.IMPN ---
Progress Note: A&P Assessment and Plan (1) Dysfunctional gallbladder: Code(s): K82.8 - Other specified diseases of gallbladder Status: Acute Assessment and Plan: Pt with known hx of non-alcoholic cirrhosis, severe abdominal pain, nausea, and vomiting. Total bilirubin elevated at 3.0 and indirect bilirubin elevated at 2.3. AST elevated at 52. ALT and ALP WNL. Lipase 173. CT abd/pelvis with gallbladder distention without cholelithiasis and mild common bile duct dilation without intrahepatic biliary duct dilation. RUQ ultrasound consistent with CT findings. HIDA scan with reduced GBEF <10% and hepatocellular dysfunction. Dr. Reyes has been consulted, recommendations are greatly appreciated. Surgery is not recommended as pt is at very high bleeding risk and high surgical mortality due to cirrhosis. Continue fentanyl for pain Continue zofran IV Will discontinue IV fluids for now as pt is hypertensive and has a hx of cirrhosis with portal hypertension. She is tolerating PO intake well. Continue zosyn for possible cholecystitis (2) Diarrhea: Code(s): R19.7 - Diarrhea, unspecified Status: Acute Assessment and Plan: Pt reports onset of diarrhea. She reports 4 episodes of diarrhea today (2 overnight and 2 today). It is brown and watery. She denies hematochezia or melena. She denies recent antibiotic use prior to this admission. Suspect she may have gastroenteritis. She did have a fever overnight. Will order stool cultures Will add probiotic Will avoid antimotility agent for now as pt was febrile (3) Abdominal pain: Qualifiers: Abdominal location: generalized Qualified Code(s): R10.84 - Generalized abdominal pain Code(s): R10.9 - Unspecified abdominal pain Status: Acute Assessment and Plan: Her pain may be due to gallbladder dysfunction. Lipase is not elevated to suggest pancreatitis. She also has hx of cirrhosis. She also developed watery diarrhea today. Will continue IV fentanyl for now and switch to PO regimen when pt is no longer NPO as tolerated (4) Hypothyroidism (acquired): Code(s): E03.9 - Hypothyroidism, unspecified Status: Chronic Assessment and Plan: TSH slightly low at 0.413. Free T4 normal at 1.46 and Total T3 normal at 0.97. Will check free T3 Continue with levothyroxine (5) Cirrhosis: Qualifiers: Ascites presence: unspecified Hepatic cirrhosis type: unspecified hepatic cirrhosis Qualified Code(s): K74.60 - Unspecified cirrhosis of liver Code(s): K74.60 - Unspecified cirrhosis of liver Status: Chronic Assessment and Plan: Dr. Mcneil is on board. Pt is also established with GI elsewhere as well. Source is unknown but non-alcoholic. AST elevated at 52. ALT and ALP WNL. Total and indirect bilirubin elevated. Platelets [address] Mcneil on board and is performing further workup Will request records (6) Anxiety disorder, unspecified: Qualifiers: Anxiety disorder type: generalized anxiety disorder Qualified Code(s): F41.1 - Generalized anxiety disorder Code(s): F41.9 - Anxiety disorder, unspecified Status: Chronic Assessment and Plan: Pt's mood is stable. Continue with fluoxetine and alprazolam PRN (7) Migraine: Code(s): G43.909 - Migraine, unspecified, not intractable, without status migrainosus Status: Chronic Assessment and Plan: Continue sumatriptan PRN migraine (8) COPD (chronic obstructive pulmonary disease): Code(s): J44.9 - Chronic obstructive pulmonary disease, unspecified Status: Chronic Assessment and Plan: Not in acute exacerbation. Continue albuterol and fluticasone (9) Glaucoma: Code(s): H40.9 - Unspecified glaucoma Status: Chronic Assessment and Plan: Continue travoprost, timolol, and simbrinza (10) Fall: Code(s): W1
[2019-07-15 11:51] VITALS: BMI 30.4
--- NOTE | 2019-07-15 12:44 | PM.CNGS ---
Assessment and Plan Assessment and plan (1) Dysfunctional gallbladder: Code(s): K82.8 - Other specified diseases of gallbladder Status: Acute Assessment and Plan: I have reviewed the imaging and discussed the findings with the patient. She has evidence of cirrhosis and portal hypertension of unknown cause. While her gallbladder ejection fraction is decreased, she would not be a good surgical candidate due to the liver findings. She would be at very high risk of bleeding and also high risk of surgical mortality due to cirrhosis. I would recommend a low-fat diet, but otherwise would not recommend any surgery for this finding. (2) Cirrhosis: Qualifiers: Ascites presence: unspecified Hepatic cirrhosis type: unspecified hepatic cirrhosis Qualified Code(s): K74.60 - Unspecified cirrhosis of liver Code(s): K74.60 - Unspecified cirrhosis of liver Status: Chronic (3) Portal hypertension: Code(s): K76.6 - Portal hypertension Status: Acute History of Present Illness Consult details Consult date: 07/15/19 Narrative: This is a 58-year-old woman who presented to the hospital with right-sided abdominal pain. She points to pain more in the right lower side. She does state that her bowels are moving, and she does not complain of any constipation currently. Her pain is improved and she is not complaining of much pain now, but she did recently receive IV pain meds. Her imaging this admission has included a CT abdomen and pelvis, gallbladder ultrasound, and HIDA scan. CT is concerning for cirrhosis and portal hypertension. Gallbladder ultrasound did not show any significant gallbladder abnormalities. HIDA scan showed gallbladder ejection fraction less than 10%, but also showed very delayed hepatocellular uptake which would support the CT findings of cirrhosis. Review of Systems Review of Systems: All systems reviewed & are unremarkable except as noted in HPI and below Eyes: Eyes: Denies change in vision ENT: Denies hearing loss, Denies neck pain and Denies sore throat Cardiovascular: Cardiovascular: Denies chest pain and Denies dyspnea Respiratory: Respiratory: Denies cough, Denies dyspnea and Denies wheezing Gastrointestinal: Gastrointestinal: Reports as per HPI Genitourinary: Genitourinary: Denies hematuria and Denies dysuria Musculoskeletal: Musculoskeletal: Denies arthralgias, Denies joint swelling and Denies neck pain Allergic/Immunologic: Allergic/Immunologic: Denies wheezing [facility] Past Medical History Medical History Anxiety Arthritis Asthma Back injury Broken toe Multiple Cataracts, bilateral Only the right eye has been extracted and still has a cataract in the left CHF (congestive heart failure) Poorly documented Cirrhosis, nonalcoholic With a small volume of ascites noted on CT scan from February 2017 COPD (chronic obstructive pulmonary disease) COPD exacerbation Depression Essential hypertension Full dentures GERD (gastroesophageal reflux disease) Glaucoma Right eye History of angina Hyperlipidemia Hypothyroidism (acquired) Migraine Pneumonia Portal hypertension Short-term memory loss 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
[2019-07-15 14:00] VITALS: BP 164/72; PULSE 93; RESP 17; TEMP 37; O2SAT 100
[2019-07-15] MEDS: TIMOLOL MALEATE 0.5% OP SOLN 5 ML BTL 1 DROP EACH EYE (15:38)
[2019-07-15] MEDS: BRINZOLAMIDE 1% OPHTH SUSP 10 ML 1 DROP EACH EYE (15:39)
[2019-07-15] MEDS: BRIMONIDINE TARTRATE 0.2% OP SOLN 5 ML BTL 1 DROP EACH EYE (15:39)
[2019-07-15] MEDS: SACCHAROMYCES BOULARDII 250 MG CAPSULE PO (18:55)
[2019-07-15] MEDS: LATANOPROST 0.005% OP SOLN 2.5 ML BTL 1 DROP EACH EYE (20:14)
[2019-07-15 22:00] VITALS: BP 140/59; PULSE 88; RESP 16; TEMP 36.8; O2SAT 97
[2019-07-16 02:24] VITALS: BP 175/71; PULSE 96; RESP 22; TEMP 36.6
[2019-07-16] MEDS: MORPHINE SULFATE 4 MG/ML INJ IV PUSH (02:42)
[2019-07-16 05:44] VITALS: BP 162/61; PULSE 93; RESP 18; TEMP 37.1; O2SAT 94
[2019-07-16 05:44] LABS: Basophils Percent Auto 0.3 % (0.2-1.2); Eosinophils Absolute Auto 0.4 K/mm3 (0-0.3); Eosinophils Percent Auto 4.3 % (0-4.4); Hematocrit 37.5 % (37.0-47.0); Hemoglobin 11.7 g/dL (12.0-15.0); Immature Granulocyte Absolute 0.02 K/mm3 (0.00-0.031); Immature Granulocyte Percent A 0.2 % (0-0.5); Lymphocytes Absolute Auto 2.35 K/mm3 (0.9-3.2); Lymphocytes Percent Auto 24.5 % (18.3-44.2); Mean Corpuscular HGB Conc 31.2 g/dl (32-36); Mean Corpuscular Hemoglobin 31.1 pg (26-34); Mean Corpuscular Volume 99.7 fl (80-100); Mean Platelet Volume 10.7 fl (7.4-10.4); Monocytes Percent Auto 10.2 % (2.6-8.5); Neutrophils Absolute Auto 5.8 K/mm3 (1.3-6.7); Neutrophils Percent Auto 60.5 % (45.5-73.1); Platelet Count Result 80 k/mm3 (150-375); Red Blood Count 3.76 M/mm3 (4.2-5.4); Red Cell Distribution Width 16.9 % (11.5-14.5); White Blood Count 9.6 K/mm3 (4.5-10.0)
[2019-07-16] MEDS: LEVOTHYROXINE SODIUM 75 MCG TABLET PO (05:54)
[2019-07-16 05:55] LABS: Alanine Aminotransferase 31 U/L (4-35); Albumin Level 2.8 g/dL (3.5-5.1); Alkaline Phosphatase 79 U/L (38-126); Aspartate Amino Transferase 51 U/L (14-36); Bilirubin Indirect 2.7 mg/dL (0-1.1); Bilirubin,Total 2.8 mg/dL (0.2-1.3); Blood Urea Nitrogen 8 mg/dL (7-17); Calcium 8.3 mg/dL (8.4-10.2); Carbon Dioxide 27 mmol/L (22-30); Chloride 110 mmol/L (98-107); Estimated CRCL calculation 81 ml/min; Estimated Glomerular Filt Rate > 60; Glucose 102 mg/dL (65-105); Potassium 3.7 mmol/L (3.4-5.0); Sodium 138 mmol/L (137-145)
[2019-07-16 08:00] VITALS: PULSE 93; RESP 18; O2SAT 94
[2019-07-16] MEDS: FLUOXETINE HCL 20 MG CAP 40 MG PO (08:09)
[2019-07-16] MEDS: POTASSIUM CHLORIDE 20 MEQ TABLET.ER PO ×2 (08:09→18:03)
[2019-07-16] MEDS: lamoTRIgine 100 MG TABLET PO (08:10)
[2019-07-16] MEDS: PANTOPRAZOLE 40 MG TABLET PO (08:10)
[2019-07-16] MEDS: SACCHAROMYCES BOULARDII 250 MG CAPSULE PO ×2 (08:10→18:03)
[2019-07-16] MEDS: BRINZOLAMIDE 1% OPHTH SUSP 10 ML 1 DROP EACH EYE (08:10)
[2019-07-16] MEDS: TIMOLOL MALEATE 0.5% OP SOLN 5 ML BTL 1 DROP EACH EYE (08:11)
[2019-07-16] MEDS: BRIMONIDINE TARTRATE 0.2% OP SOLN 5 ML BTL 1 DROP EACH EYE (08:13)
--- NOTE | 2019-07-16 11:33 | PM.IMPN ---
Progress Note: A&P Assessment and Plan (1) Dysfunctional gallbladder: Code(s): K82.8 - Other specified diseases of gallbladder Status: Acute Assessment and Plan: Pt with known hx of non-alcoholic cirrhosis, abdominal pain, nausea, and vomiting. Lipase 173. CT abd/pelvis with gallbladder distention without cholelithiasis and mild common bile duct dilation without intrahepatic biliary duct dilation. RUQ ultrasound consistent with CT findings. HIDA scan with reduced GBEF <10% and hepatocellular dysfunction.Total bilirubin still elevated today at 2.8 and indirect bilirubin elevated at 2.7. AST elevated at 51. ALT and ALP WNL. Dr. Reyes has been consulted, continued general surgery recommendations are greatly appreciated. Surgery is not recommended as pt is at very high bleeding risk and high surgical mortality due to cirrhosis. Will change pain regimen to morphine IV for severe pain and norco PO PRN for mild-moderate pain Continue zofran IV Continue zosyn for possible cholecystitis Stressed the importance of avoiding high fat foods and explained that this will exacerbate her sx. Discouraged the continued consumption of fast food. (2) Diarrhea: Code(s): R19.7 - Diarrhea, unspecified Status: Acute Assessment and Plan: Pt reports onset of diarrhea. She denies recent antibiotic use prior to this admission. Gastroenteritis is a possibility but less likely. Her stool frequency has decreased and her stools soft but no longer watery. Stool cultures are pending. Will continue probiotic Will avoid antimotility agent for now as pt was febrile (3) Abdominal pain: Qualifiers: Abdominal location: generalized Qualified Code(s): R10.84 - Generalized abdominal pain Code(s): R10.9 - Unspecified abdominal pain Status: Acute Assessment and Plan: Her pain may be due to gallbladder dysfunction. Lipase is not elevated to suggest pancreatitis. She also has hx of cirrhosis. She continues to c/o pain. RUQ and worse after eating a hamburger last night. Pain regimen was adjusted to morphine IV and norco PO (4) Hypothyroidism (acquired): Code(s): E03.9 - Hypothyroidism, unspecified Status: Chronic Assessment and Plan: TSH slightly low at 0.413. Free T4 normal at 1.46 and Total T3 normal at 0.97. Continue with levothyroxine (5) Cirrhosis: Qualifiers: Ascites presence: unspecified Hepatic cirrhosis type: unspecified hepatic cirrhosis Qualified Code(s): K74.60 - Unspecified cirrhosis of liver Code(s): K74.60 - Unspecified cirrhosis of liver Status: Chronic Assessment and Plan: Dr. Mcneil is on board. Pt is also established with GI elsewhere as well. Source is unknown but non-alcoholic per pt. LFTs repeated today and grossly unchanged. Total and indirect bilirubin elevated. Platelets [address] Mcneil on board and is performing further workup Will request records (6) Anxiety disorder, unspecified: Qualifiers: Anxiety disorder type: generalized anxiety disorder Qualified Code(s): F41.1 - Generalized anxiety disorder Code(s): F41.9 - Anxiety disorder, unspecified Status: Chronic Assessment and Plan: Pt's mood is stable. Continue with fluoxetine and alprazolam PRN (7) Migraine: Code(s): G43.909 - Migraine, unspecified, not intractable, without status migrainosus Status: Chronic Assessment and Plan: Continue sumatriptan PRN migraine (8) COPD (chronic obstructive pulmonary disease): Code(s): J44.9 - Chronic obstructive pulmonary disease, unspecified Status: Chronic Assessment and Plan: Not in acute exacerbation. Continue albuterol and fluticasone (9) Glaucoma: Code(s): H40.9 - Unspecified glaucoma Status: Chronic Assessment and Plan: Continue travoprost, timolol, and simbrinza (10) Fall:
[2019-07-16 14:00] VITALS: BP 151/75; PULSE 80; RESP 16; TEMP 36.8; O2SAT 93
[2019-07-16] MEDS: ALPRAZOLAM 0.5 MG TABLET PO (14:03)
--- NOTE | 2019-07-16 15:57 | PC.NURSE ---
Call to Dr Mcneil RE: seeing patient today. Dr Mcneil states that patient liver dysfunction is chronic, stable, unchanged from admission. He will see her on Thursday, if she is still in the hospital.
[2019-07-16] MEDS: NEOMYCIN/POLYMYXIN/BACITRACIN OINTMENT PACKET 1 PACKET (16:10)
[2019-07-16] MEDS: SUMAtriptan SUCCINATE 25 MG TABLET 100 MG PO (18:45)
[2019-07-16] MEDS: LATANOPROST 0.005% OP SOLN 2.5 ML BTL 1 DROP EACH EYE (20:06)
[2019-07-16 21:51] VITALS: BP 163/58; PULSE 57; RESP 20; TEMP 36.4; O2SAT 96
[2019-07-16 22:04] VITALS: BP 163/66; PULSE 72; RESP 20; TEMP 36.6; O2SAT 94
[2019-07-17 05:49] LABS: Alanine Aminotransferase 31 U/L (4-35); Albumin Level 2.8 g/dL (3.5-5.1); Alkaline Phosphatase 79 U/L (38-126); Aspartate Amino Transferase 49 U/L (14-36); Bilirubin,Total 2.3 mg/dL (0.2-1.3); Blood Urea Nitrogen 5 mg/dL (7-17); Calcium 8.5 mg/dL (8.4-10.2); Carbon Dioxide 32 mmol/L (22-30); Chloride 106 mmol/L (98-107); Estimated CRCL calculation 93 ml/min; Estimated Glomerular Filt Rate > 60; Glucose 101 mg/dL (65-105); Sodium 137 mmol/L (137-145)
[2019-07-17 06:00] VITALS: BP 181/68; PULSE 81; RESP 20; TEMP 36.3; O2SAT 93
[2019-07-17] MEDS: LEVOTHYROXINE SODIUM 75 MCG TABLET PO (06:44)
--- NOTE | 2019-07-17 09:04 | PM.IMPN ---
Progress Note: A&P Assessment and Plan (1) Dysfunctional gallbladder: Code(s): K82.8 - Other specified diseases of gallbladder Status: Acute Assessment and Plan: Clinically, pt appears to be improving. Sx were severely exacerbated when she ate fast food 07/14 but she is now compliant with low fat diet and is tolerating that with less postprandial pain. She denies N/V. She endorses mild diarrhea. Electrolytes are stable. Dr. Reyes has been consulted and does not recommended surgery as pt is at very high bleeding risk and is at risk for high surgical mortality due to cirrhosis. Will change pain regimen to morphine IV for severe pain and norco PO PRN for mild-moderate pain Continue zofran IV for Continue zosyn empirically for possible cholecystitis Continued to stress the importance of avoiding high fat foods and explained that this will exacerbate her sx. Discouraged the continued consumption of fast food. (2) Diarrhea: Code(s): R19.7 - Diarrhea, unspecified Status: Acute Assessment and Plan: Pt has developed diarrhea that does appear to be improving. Stools are soft. She denies recent antibiotic use prior to this admission. Gastroenteritis is a possibility but I feel this is unlikely. Will continue probiotic Will avoid antimotility agent for now as frequency of stools has decreased (3) Abdominal pain: Qualifiers: Abdominal location: generalized Qualified Code(s): R10.84 - Generalized abdominal pain Code(s): R10.9 - Unspecified abdominal pain Status: Acute Assessment and Plan: Her pain may be due to gallbladder dysfunction. Lipase is not elevated to suggest pancreatitis. She also has hx of cirrhosis. Pain is improving. Continue morphine IV and norco PO (4) Hypothyroidism (acquired): Code(s): E03.9 - Hypothyroidism, unspecified Status: Chronic Assessment and Plan: Continue with levothyroxine (5) Cirrhosis: Qualifiers: Ascites presence: unspecified Hepatic cirrhosis type: unspecified hepatic cirrhosis Qualified Code(s): K74.60 - Unspecified cirrhosis of liver Code(s): K74.60 - Unspecified cirrhosis of liver Status: Chronic Assessment and Plan: Dr. Mcneil is on board. Pt is also established with GI elsewhere as well. Source is unknown but non-alcoholic per pt. Pt with hx of EBV but is unsure if this has been confirmed as the etiology although this has been documented as a possible source in previous records. AST elevated at 49 and trending down. Pt is thrombocytopenic. Albumin is low. Dr. Mcneil is on board, management per Dr. Mcneil Records have been requested (6) Anxiety disorder, unspecified: Qualifiers: Anxiety disorder type: generalized anxiety disorder Qualified Code(s): F41.1 - Generalized anxiety disorder Code(s): F41.9 - Anxiety disorder, unspecified Status: Chronic Assessment and Plan: Pt's mood is stable. Continue with fluoxetine and alprazolam PRN (7) Migraine: Code(s): G43.909 - Migraine, unspecified, not intractable, without status migrainosus Status: Chronic Assessment and Plan: Continue sumatriptan PRN migraine (8) COPD (chronic obstructive pulmonary disease): Code(s): J44.9 - Chronic obstructive pulmonary disease, unspecified Status: Chronic Assessment and Plan: Not in acute exacerbation. Continue albuterol and fluticasone (9) Glaucoma: Code(s): H40.9 - Unspecified glaucoma Status: Chronic Assessment and Plan: Continue travoprost, timolol, and simbrinza (10) Fall: Code(s): W19.XXXA - Unspecified fall, initial encounter Status: Acute Assessment and Plan: Pt with hx of fall on knees while leaned forward vomiting. No LOC or head injury. No other injuries sustained. Xray with possible lucencies and further imaging recommended
[2019-07-17] MEDS: lisinopriL 10 MG TABLET PO (09:36)
[2019-07-17] MEDS: PANTOPRAZOLE 40 MG TABLET PO (09:38)
[2019-07-17] MEDS: POTASSIUM CHLORIDE 20 MEQ TABLET.ER PO ×2 (09:38→16:41)
[2019-07-17] MEDS: SACCHAROMYCES BOULARDII 250 MG CAPSULE PO ×2 (09:38→16:41)
[2019-07-17] MEDS: FLUOXETINE HCL 20 MG CAP 40 MG PO (09:38)
[2019-07-17] MEDS: lamoTRIgine 100 MG TABLET PO (09:38)
[2019-07-17] MEDS: BRIMONIDINE TARTRATE 0.2% OP SOLN 5 ML BTL 1 DROP EACH EYE (09:39)
[2019-07-17] MEDS: BRINZOLAMIDE 1% OPHTH SUSP 10 ML 1 DROP EACH EYE (09:39)
[2019-07-17] MEDS: TIMOLOL MALEATE 0.5% OP SOLN 5 ML BTL 1 DROP EACH EYE (09:40)
[2019-07-17 10:00] VITALS: BP 171/67; PULSE 87
[2019-07-17 14:00] VITALS: BP 127/63; PULSE 87; RESP 18; TEMP 37.1; O2SAT 97
[2019-07-17] MEDS: LATANOPROST 0.005% OP SOLN 2.5 ML BTL 1 DROP EACH EYE (20:52)
[2019-07-17 21:37] VITALS: BP 155/73; PULSE 79; RESP 18; TEMP 36.3; O2SAT 97
[2019-07-18 05:46] LABS: Basophils Percent Auto 0.5 % (0.2-1.2); Eosinophils Absolute Auto 0.4 K/mm3 (0-0.3); Eosinophils Percent Auto 4.5 % (0-4.4); Hematocrit 37.3 % (37.0-47.0); Hemoglobin 11.8 g/dL (12.0-15.0); Immature Granulocyte Absolute 0.03 K/mm3 (0.00-0.031); Immature Granulocyte Percent A 0.4 % (0-0.5); Lymphocytes Absolute Auto 1.62 K/mm3 (0.9-3.2); Lymphocytes Percent Auto 19.8 % (18.3-44.2); Mean Corpuscular HGB Conc 31.6 g/dl (32-36); Mean Corpuscular Hemoglobin 31.8 pg (26-34); Mean Corpuscular Volume 100.5 fl (80-100); Mean Platelet Volume 11.3 fl (7.4-10.4); Monocytes Absolute Auto 0.9 K/mm3 (0.1-0.6); Monocytes Percent Auto 10.6 % (2.6-8.5); Neutrophils Absolute Auto 5.3 K/mm3 (1.3-6.7); Neutrophils Percent Auto 64.2 % (45.5-73.1); Platelet Count Result 69 k/mm3 (150-375); Red Blood Count 3.71 M/mm3 (4.2-5.4); Red Cell Distribution Width 16.2 % (11.5-14.5); White Blood Count 8.2 K/mm3 (4.5-10.0)
[2019-07-18 05:49] LABS: Alanine Aminotransferase 31 U/L (4-35); Albumin Level 2.7 g/dL (3.5-5.1); Alkaline Phosphatase 89 U/L (38-126); Aspartate Amino Transferase 51 U/L (14-36); Blood Urea Nitrogen 4 mg/dL (7-17); Calcium 8.6 mg/dL (8.4-10.2); Carbon Dioxide 30 mmol/L (22-30); Chloride 104 mmol/L (98-107); Estimated CRCL calculation 93 ml/min; Estimated Glomerular Filt Rate > 60; Glucose 103 mg/dL (65-105); Potassium 3.9 mmol/L (3.4-5.0); Sodium 134 mmol/L (137-145)
[2019-07-18 06:00] VITALS: BP 167/72; PULSE 87; RESP 16; TEMP 36.2; O2SAT 96
[2019-07-18] MEDS: LEVOTHYROXINE SODIUM 75 MCG TABLET PO (06:32)
[2019-07-18] MEDS: POTASSIUM CHLORIDE 20 MEQ TABLET.ER PO (08:44)
[2019-07-18] MEDS: PANTOPRAZOLE 40 MG TABLET PO (08:44)
[2019-07-18] MEDS: FLUOXETINE HCL 20 MG CAP 40 MG PO (08:44)
[2019-07-18] MEDS: lisinopriL 10 MG TABLET PO (08:44)
[2019-07-18] MEDS: SACCHAROMYCES BOULARDII 250 MG CAPSULE PO (08:44)
[2019-07-18] MEDS: lamoTRIgine 100 MG TABLET PO (08:44)
[2019-07-18] MEDS: BRIMONIDINE TARTRATE 0.2% OP SOLN 5 ML BTL 1 DROP EACH EYE (08:45)
[2019-07-18] MEDS: TIMOLOL MALEATE 0.5% OP SOLN 5 ML BTL 1 DROP EACH EYE (08:45)
[2019-07-18] MEDS: BRINZOLAMIDE 1% OPHTH SUSP 10 ML 1 DROP EACH EYE (08:45)
--- NOTE | 2019-07-18 09:16 | WPDGIPROGNO ---
Progress Note: A&P Additional Plan Patient alert and comfortable this morning. Notes only minimal abdominal discomfort. Her diarrhea has improved. She continues to with her chronic back pain. Physical exam reveals her to be a febrile. She is alert. Anicteric. Lungs are clear to auscultation and percussion. Heart is without murmur. Abdomen is soft minimal upper abdominal discomfort noted. Impression 1. Cirrhosis of the liver. Appears to be cryptogenic in etiology. Likely related to fatty liver. Mild elevation of LFTs are likely on this basis. Supportive care advised. No specific treatment at this time. She can be followed electively in the office. 2. Acalculous cholecystitis. Suspected by abnormal HIDA scan results. Surgery has seen patient feels surgery not indicated. Risks out weight benefits at this time. I would agree. Plan is for low-fat diet. Continue to follow. 3. Chronic back pain. She should continue to follow with her established physician for this problem. 4. Alteration in bowel habits. Nausea vomiting. May be functional in nature. Supportive care only. stool cultures if diarrhea persists. Or recurs. Hopefully discharge today. With outpatient management Subjective Date/time seen: 07/18/19 09:16 Objective Data Vital Signs Vital Signs: Vital Signs - 24 hr 07/17/19 10:00 07/17/19 14:00 07/17/19 21:37 Temperature 37.1 C 36.3 C L Pulse Rate 87 87 79 Respiratory Rate 18 18 Blood Pressure 171/67 H 127/63 155/73 H Pulse Oximetry 97 97 07/18/19 06:00 Temperature 36.2 C L Pulse Rate 87 Respiratory Rate 16 Blood Pressure 167/72 H Pulse Oximetry 96 Intake/Output Intake/Output: Intake & Output 07/15/19 07/16/19 07/17/19 07/18/19 23:59 23:59 23:59 23:59 Intake Total 3541 1100 1670 750 Output Total 1900 750 200 950 Balance 1769 791 8532 -200 Meds/Results Medications: Active Medications Generic Name Dose Route Start Last Admin Trade Name Freq PRN Reason Stop Dose Admin Hydrocodone Bitart/Acetaminophen 1 tab 07/16/19 10:21 07/17/19 20:52 [place] 5-325 Mg PO 1 tab Q6H PRN Administration Pain Rated 1-3 Hydrocodone Bitart/Acetaminophen 1 tab 07/16/19 10:21 07/18/19 08:44 [place] 7.5-325 Mg PO 1 tab Q6H PRN Administration Pain Rated 4-6 Albuterol 2 puff 07/14/19 18:23 Proventil Hfa INHALATION Q4HRT PRN shortness of breath or wheezing Alprazolam 0.5 mg 07/14/19 18:23 07/16/19 14:03 Xanax PO 0.5 mg TID PRN Administration Anxiety Brimonidine Tartrate 1 drop 07/15/19 09:00 07/18/19 08:45 Alphagan 0.2% Op Soln EACH EYE 08/15/19 09:01 1 drop DAILY DANTE Administration Brinzolamide 1 drop 07/15/19 09:00 07/18/19 08:45 Azopt Ophth Marlne EACH EYE 08/15/19 09:01 1 drop DAILY DANTE Administration Fluoxetine HCl 40 mg 07/15/19 09:00 07/18/19 08:44 Prozac PO 40 mg DAILY DANTE Administration Hydralazine HCl 10 mg 07/15/19 07:30 Apresoline Hcl Inj IV PUSH Q8H PRN Blood Pressure - High SBP >180 Piperacillin/Tazobactam/Dextrose 3.375 gm in 50 mls @ 100 mls/hr 07/14/19 17:00 07/18/19 07:03 Zosyn 3.375 Gm/D5w 50ml Pm IVPB Infused Q6HR DANTE Infusion Lamotrigine 100 mg 07/15/19 09:00 07/18/19 08:44 Lamictal PO 100 mg DAILY DANTE Administration Latanoprost 1 drop 07/14/19 21:00 07/17/19 20:52 Xalatan EACH EYE 1 drop HS DANTE Administration Levothyroxine Sodium 75 mcg 07/15/19 06:30 07/18/19 06:32 Synthroid PO 75 mcg DAILY@0630 DANTE Administration Lisinopril 10 mg 07/17/19 09:00 07/18/19 08:44 Prinivil PO 10 mg DAILY DANTE Administration Morphine Sulfate 2 mg 07/16/19 10:21 Morphine Sulfate Inj IV PUSH Q4H PRN Pain Rated 7-10 Ondansetron HCl 4 mg 07/14/19 11:07 Zofran Inj IV PUSH Q4H PRN Nausea Pantoprazole Sodium 40 mg 07/15/19 09:00 07/18/19 08:44 Protonix PO 40 mg QAM DANTE Admi
[2019-07-18 09:25] VITALS: BP 162/73
--- NOTE | 2019-07-18 10:48 | PM.DS ---
DS: Diagnosis Admitting Diagnosis Admitting Diagnosis: Generalized abdominal pain Discharge Diagnosis (1) Dysfunctional gallbladder: Code(s): K82.8 - Other specified diseases of gallbladder Status: Acute (2) Diarrhea: Code(s): R19.7 - Diarrhea, unspecified Status: Resolved (3) Abdominal pain: Qualifiers: Abdominal location: generalized Qualified Code(s): R10.84 - Generalized abdominal pain Code(s): R10.9 - Unspecified abdominal pain Status: Acute (4) Hypothyroidism (acquired): Code(s): E03.9 - Hypothyroidism, unspecified Status: Chronic (5) Cirrhosis: Qualifiers: Ascites presence: unspecified Hepatic cirrhosis type: unspecified hepatic cirrhosis Qualified Code(s): K74.60 - Unspecified cirrhosis of liver Code(s): K74.60 - Unspecified cirrhosis of liver Status: Chronic (6) Anxiety disorder, unspecified: Qualifiers: Anxiety disorder type: generalized anxiety disorder Qualified Code(s): F41.1 - Generalized anxiety disorder Code(s): F41.9 - Anxiety disorder, unspecified Status: Chronic (7) Migraine: Code(s): G43.909 - Migraine, unspecified, not intractable, without status migrainosus Status: Chronic (8) COPD (chronic obstructive pulmonary disease): Code(s): J44.9 - Chronic obstructive pulmonary disease, unspecified Status: Chronic (9) Glaucoma: Code(s): H40.9 - Unspecified glaucoma Status: Chronic (10) Fall: Code(s): W19.XXXA - Unspecified fall, initial encounter Status: Acute (11) UTI (urinary tract infection): Code(s): N39.0 - Urinary tract infection, site not specified Status: Acute (12) Unconjugated hyperbilirubinemia: Code(s): E80.6 - Other disorders of bilirubin metabolism Status: Acute DS: Summary Hospital Course Reason for hospitalization: Mrs. Redding is a 58 y.o. female with PMH significant for cryptogenic cirrhosis (non-alcoholic), COPD, anxiety, depression, chronic pain, hypertension, CHF poorly reported who presented to the ED with c/o severe crampy, diffuse abdominal pain, nausea, and vomiting. She also reported a ground level fall on her knees while leaning forward retching. Initial workup in the ED revealed WBC 10.1, Hb 13.6, plt count 96, total bilirubin 3.0 with elevated indirect bilirubin 2.3, AST elevated at 51, lipase 173. CT abd/pelvis revealed moderately distended gallbladder without cholelithiasis and mild non-specific fat stranding at the colon and pancreas. Abd US revealed moderate gallbladder distention with pericholecystic fluid and mild common bile duct dilation without cholelithiasis. HIDA scan revealed low gallbladder ejection fraction <10%. She was admitted to the hospitalist service for further evaluation and treatment. Dr. Mcneil with GI and Dr. Reyes with general surgery were consulted. She was treated with antiemetics, anelgesics, and zosyn empirically for acalculous cholecystitis. Her diet was advanced and she was tolerable of a low-fat diet. Sx worsened when she consumed fast food from outside the hospital and she was advised that she needs to strictly adhere to low fat diet. Urine culture grew E. coli, susceptible to zosyn which she was on for acalculous cholecystitis, but pt had no urinary complaints. Knee xrays could not exclude fracture so CT of the bilateral knees were ordered and negative for fracture. She will need to follow-up with Dr. Gilmore outpatient for her osteoarthritis as planned. She was not felt to be a surgical candidate for her gallbladder dysfunction due to high bleeding risk and cirrhosis. She as advised to strictly adhere to low fat diet. BP was elevated so low dose lisinopril was initiated. She will follow-up with her PCP for further eval of HTN. She will need to continue follow-up outpatient for her cirrhosis. She will have labs repeated with her primary care provider. At the time of di
[2019-07-19 21:22] LABS: Triiodothyronine T3 Free 2.6 pg/mL (2.3-4.2)
== END 2019-07-18 11:10 | disposition home or self-care (01) ==
LOC: ANHED 11:16 → ANH2MED 11:54
PROVIDERS: Emergency Medicine; Nurse Practitioner; Admitting Provider Hospitalist; Emergency Provider Emergency Medicine; PCP Family Medicine; Visit Provider Physician Assistant
DX: K82.8 Other specified diseases of gallbladder (principal); K81.9 Cholecystitis, unspecified; R10.84 Generalized abdominal pain; R19.4 Change in bowel habit; E03.9 Hypothyroidism, unspecified; K74.69 Other cirrhosis of liver; K76.6 Portal hypertension; F41.1 Generalized anxiety disorder; F32.9 Major depressive disorder, single episode, unspecified; G43.909 Migraine, unspecified, not intractable, without status migrainosus; J44.9 Chronic obstructive pulmonary disease, unspecified; H40.9 Unspecified glaucoma; N39.0 Urinary tract infection, site not specified; B96.20 Unspecified Escherichia coli [E. coli] as the cause of diseases classified elsewhere; E80.6 Other disorders of bilirubin metabolism; I10 Essential (primary) hypertension; E78.5 Hyperlipidemia, unspecified; M25.562 Pain in left knee; M25.561 Pain in right knee; M25.462 Effusion, left knee; M25.461 Effusion, right knee; W19.XXXA Unspecified fall, initial encounter; M17.0 Bilateral primary osteoarthritis of knee; Z28.21 Immunization not carried out because of patient refusal; M54.89 Other dorsalgia; G89.29 Other chronic pain; Z96.82 Presence of neurostimulator; Z98.1 Arthrodesis status; Z79.899 Other long term (current) drug therapy; Z87.891 Personal history of nicotine dependence
CPT/HCPCS: 36415; 73560; 73700; 74177; 76705; 78227; 80053; 81001; 82248; 83690; 83735; 84439; 84443; 84480; 84481; 85025; 85055; 87015; 87040; 87045; 87046; 87077; 87086; 87088; 87186; 87269; 87272; 87427; 94640; 96361; 96365; 96366; 96375; 96376; 99285; A9270; A9537; G0378; J0360; J1885; J2060; J2270; J2405; J2543; J2805; J3010; J7030; Q9967

== ENCOUNTER 2020-10-22 07:37 | Outpatient (CLI) | payer MEDICARE, SELFPAY ==
[2020-10-22 08:43] LABS: Hematocrit 40.4 % (37.0-47.0); Hemoglobin 13.2 g/dL (12.0-15.0); Immature Platelet Fraction Pct 3.8 % (0.9-11.2); Mean Corpuscular HGB Conc 32.7 g/dl (32-36); Mean Corpuscular Volume 98.1 fl (80-100); Mean Platelet Volume 10.7 fl (7.4-10.4); Platelet Count Result 106 k/mm3 (150-375); Red Blood Count 4.12 M/mm3 (4.2-5.4); Red Cell Distribution Width 14.8 % (11.5-14.5); White Blood Count 6.9 K/mm3 (4.5-10.0)
[2020-10-22 08:46] LABS: Alanine Aminotransferase 17 U/L (4-35); Albumin Level 3.7 g/dL (3.5-5.1); Alkaline Phosphatase 96 U/L (38-126); Amylase 55 U/L (30-110); Aspartate Amino Transferase 45 U/L (14-36); Bilirubin Indirect 1.3 mg/dL (0-1.1); Bilirubin,Total 1.6 mg/dL (0.2-1.3); Lipase 146 U/L (23-300)
== END 2020-10-22 07:38 | disposition home or self-care (01) ==
PROVIDERS: PCP Family Medicine; Referring Provider Family Medicine; Visit Provider Internal Medicine Gastroenterology
DX: R11.2 Nausea with vomiting, unspecified (principal); R10.11 Right upper quadrant pain; R93.3 Abnormal findings on diagnostic imaging of other parts of digestive tract; R19.4 Change in bowel habit
CPT/HCPCS: 36415; 82040; 82150; 82247; 82248; 83690; 84075; 84450; 84460; 85027; 85055

== ENCOUNTER 2020-10-23 20:48 | Observation (INO) | payer MEDICARE, SELFPAY ==
[2020-10-23] VITALS (15 sets, daily range): BP systolic 136–158; BP diastolic 66–78; PULSE 97–105; RESP 11–18; TEMP 36.9; O2SAT 98–100
--- NOTE | ~2020-10-23 | CT_ITS ---
EXAMINATION: CT cervical spine wo con DATE: 10/24/2020 01:00 INDICATION: Head injury TECHNIQUE: Computed tomography (CT) of the cervical spine was performed without intravenous contrast. The dose-length product (DLP) was 472.21 mGy-cm. Automated exposure control and iterative reconstruc tion technique were employed. COMPARISON: None FINDINGS: There is an age-indeterminate T3 compression fracture. There is no cervical spine fracture, dislocation, or subluxation. Mild loss of intervertebral disc space height is present at C4-5 and C5 -6. The odontoid is intact. There is mild multilevel facet and uncovertebral joint osteoarthritis. Th e prevertebral soft tissues are normal. IMPRESSION: 1. Mild cervical spondylosis without acute findings of the cervical spine. 2. Age indeterminate T3 compression fracture. Reviewed, dictated and finalized at location A.
--- NOTE | ~2020-10-23 | CT_ITS ---
EXAMINATION: CT brain wo con DATE: 10/23/2020 23:09 INDICATION: Head injury. TECHNIQUE: Computed tomography (CT) of the head was performed without intravenous contrast. The mA wa s adjusted according to patient size. Iterative reconstruction technique was employed. The dose-lengt h product was 681.00 mGy-cm. COMPARISON: Head CT 06/25/2019 FINDINGS: There is no intracranial hemorrhage, acute infarction, or abnormal intracranial mass lesion . The ventricles are normal in size. There are likely changes of right ocular lens replacement surger y. There is an implant at the superolateral aspect of the right ocular globe. There is mild mucosal t hickening in the ethmoid sinuses. The mastoid air cells are normal. IMPRESSION: 1. Normal brain. Reviewed, dictated and finalized at location A. IMPRESSION: 1. Normal brain.
--- NOTE | ~2020-10-23 | CT_ITS ---
EXAMINATION: CT facial bones wo con DATE: 10/24/2020 16:34 INDICATION: Face injury. TECHNIQUE: Computed tomography (CT) of the facial bones and maxillofacial region was performed withou t intravenous contrast. Automated exposure control and iterative reconstruction technique were employ ed. The dose-length product was 265.77 mGy-cm. COMPARISON: Head CT 10/23/2020 FINDINGS: There are likely changes of right ocular lens replacement surgery. There is an implant supe rolateral to right ocular globe. There is right cheek soft tissue swelling. There is rightward deviat ion of the nasal septum with a left lateral spur. No fracture. IMPRESSION: 1. No fracture. Reviewed, dictated and finalized at location A. IMPRESSION: 1. No fracture.
--- NOTE | ~2020-10-23 | US_ITS ---
EXAMINATION: US carotid duplex BI DATE: 10/25/2020 13:56 INDICATION: Frequent falls. Encephalopathy. TECHNIQUE: Grayscale, color Doppler, and pulsed Doppler images of the cervical carotid arteries were obtained. The degree of vessel stenosis is placed in one of the following categories: normal, <50%, 5 0-69%, >=70% but less than near-occlusion, near-occlusion, or total occlusion. Note that percent sten osis relative to normal distal artery lumen diameter is indirectly measured from velocity measurement s as described by Nino, et al. Radiology 2003; 229:[id number]. Notes: Normal: Peak systolic velocity <125 centimeters/sec and no plaque <50%. Peak systolic velocity <125 ( EDV <40; ICA/CCA PSV ratio <2.0; used these factors only a tandem lesions or low cardiac output or co ntralateral disease) 50-69 %: PSV 125-230 (EDV 40-100; ratio 2-4) >= 70% but less than near occlusion: PSV greater than 230 (EDV > 100; ratio> 4.0) Near Occlusion: PSV that is variable; markedly narrowed lumen Occlusion: Absent flow on color/spectral Doppler and no lumen on hahn scale. COMPARISON: None. FINDINGS: RIGHT: The right common carotid artery (CCA) peak systolic velocity (PSV) is 113 cm/s. The right internal ca rotid artery (ICA) PSV is 106 cm/s. The right ICA end-diastolic velocity (EDV) is 36 cm/s. The right ICA/CCA PSV ratio is 0.9. The external carotid artery (ECA) PSV is 87 cm/s. There is antegrade flow i n the right vertebral artery. LEFT: The left CCA PSV is 111 cm/s. The left ICA PSV is 131 cm/s. The left ICA EDV is 80 cm/s. The left ICA /CCA PSV ratio is 1.2. The ECA PSV is 123 cm/s. There is antegrade flow in the left vertebral artery . IMPRESSION: 1. Less than 50% stenosis in the right internal carotid artery by sonographic criteria. 2. 50-69% stenosis in the left internal carotid artery by sonographic criteria. Reviewed, dictated and finalized at location B. IMPRESSION: 1. Less than 50% stenosis in the right internal carotid artery by sonographic c riteria. 2. 50-69% stenosis in the left internal carotid artery by sonographic criteria.
--- NOTE | ~2020-10-23 | XR_ITS ---
EXAMINATION: XR chest 1V portable DATE: 10/24/2020 00:00 INDICATION: Right chest pain. TECHNIQUE: A single frontal view of the chest was obtained. COMPARISON: Chest single view 06/25/2019 FINDINGS: There is no pneumonia, pleural effusion, or pneumothorax. The heart size is normal. Epidura l electrodes are noted. IMPRESSION: 1. No acute cardiopulmonary disease. Reviewed, dictated and finalized at location A.
--- NOTE | ~2020-10-23 | XR_ITS ---
EXAMINATION: XR ribs RT 2V DATE: 10/23/2020 21:41 INDICATION: Right chest pain. TECHNIQUE: 4 views of the right ribs were obtained. COMPARISON: Chest single view 06/25/2019 FINDINGS: There is no right-sided pneumonia, pleural effusion, or pneumothorax. The heart size is nor mal. There are changes of posterior fusion procedure in lumbosacral spine. There are epidural electro sharath in thoracic spine. IMPRESSION: 1. No rib fracture. Reviewed, dictated and finalized at location A. IMPRESSION: 1. No rib fracture.
--- NOTE | ~2020-10-23 | CT_ITS ---
EXAMINATION: CT abdomen pelvis wo con DATE: 10/24/2020 01:01 INDICATION: Head injury. Neck pain. Abdomen pain. TECHNIQUE: Computed tomography (CT) of the abdomen and pelvis was performed without intravenous contr ast. The dose-length product was 1167.14 mGy-cm. Automated exposure control and iterative reconstruct ion technique were employed. COMPARISON: CT dated 07/14/2019 FINDINGS: Lung bases are unremarkable. Heart size normal. No significant pleural or pericardial effus ion. There is splenomegaly with multiple varicosities. There is nodular liver surface. Findings abel tible with cirrhosis with portal hypertension. Gallbladder is present. Mild atherosclerosis. No lymph adenopathy. Nonobstructive bowel gas pattern. Diverticulosis without evidence for diverticulitis. The re are scattered mesenteric lymph nodes which are likely reactive. The pancreas, adrenal glands and kidneys are unremarkable. There is a cyst in the upper pole of the l eft kidney. Uterus is atrophic. No abnormal pelvic masses or fluid collections. There are spinal stim ulator leads, partially visualized. There are surgical changes of the lumbar spine. No acute osseous abnormality. IMPRESSION: 1. No acute abdominal abnormality. 2: Cirrhosis with portal hypertension. Splenomegaly. Reviewed, dictated and finalized at location B.
--- NOTE | 2020-10-23 21:02 | ECG_ITS ---
Measurements Intervals [place] Rate: 105 P: 28 NV: 161 QRS: -32 QRSD: 84 T: 31 QT: 371 QTc: 492 Interpretive Statements SINUS TACHYCARDIA LEFT AXIS DEVIATION VOLTAGE CRITERIA FOR LVH POOR R WAVE PROGRESSION, ANTERIOR LEADS MINIMAL Q WAVES- HIGH LATERAL LEADS ABNORMAL ECG Electronically Signed On 10-24-2020 5:42:00 CDT by Poli Jama D.O.
[2020-10-23 21:27] LABS: Basophils Percent Auto 0.7 % (0.2-1.2); Eosinophils Absolute Auto 0.2 K/mm3 (0-0.3); Eosinophils Percent Auto 3.3 % (0-4.4); Hematocrit 36.9 % (37.0-47.0); Hemoglobin 11.9 g/dL (12.0-15.0); Immature Granulocyte Absolute 0.01 K/mm3 (0.00-0.031); Immature Granulocyte Percent A 0.2 % (0-0.5); Lymphocytes Percent Auto 34.4 % (18.3-44.2); Mean Corpuscular HGB Conc 32.2 g/dl (32-36); Mean Corpuscular Hemoglobin 32.2 pg (26-34); Mean Platelet Volume 10.9 fl (7.4-10.4); Monocytes Absolute Auto 0.7 K/mm3 (0.1-0.6); Monocytes Percent Auto 11.6 % (2.6-8.5); Neutrophils Percent Auto 49.8 % (45.5-73.1); Platelet Count Result 101 k/mm3 (150-375); Red Blood Count 3.69 M/mm3 (4.2-5.4); Red Cell Distribution Width 15.4 % (11.5-14.5); White Blood Count 6.1 K/mm3 (4.5-10.0)
[2020-10-23 21:37] LABS: Alanine Aminotransferase 17 U/L (4-35); Albumin Level 3.5 g/dL (3.5-5.1); Alkaline Phosphatase 83 U/L (38-126); Anion Gap 8 mmol/L (8-16); Aspartate Amino Transferase 43 U/L (14-36); Bilirubin,Total 1.3 mg/dL (0.2-1.3); Blood Urea Nitrogen 14 mg/dL (7-17); Calcium 9.9 mg/dL (8.4-10.2); Carbon Dioxide 23 mmol/L (22-30); Chloride 109 mmol/L (98-107); Estimated CRCL calculation 54 ml/min; Estimated Glomerular Filt Rate 50; Glucose 134 mg/dL (65-105); Potassium 4.4 mmol/L (3.4-5.0); Sodium 140 mmol/L (137-145)
--- NOTE | 2020-10-23 22:00 | PC.NURSE ---
Pt to ED 10 in . Pt's KIMBERLY waiting in parking lot for pt to be placed in private room from . This RN called her at pt's request to update her on pt's location.
--- NOTE | 2020-10-23 23:11 | PC.NURSE ---
Patient report received from MENA Wen. Assumed care of patient at this time.
[2020-10-23 23:38] LABS: Add Urine Microscopic? YES; Appearance Urine Clear (Clear); Bilirubin Urine Negative (Negative); Blood Urine Negative (Negative); Color Urine Yellow (Yellow); Glucose Urine UA Negative (Negative); Ketones Urine Negative (Negative); Leukocyte Esterase Ur Negative LEU/UL (Negative); Mucus Urine Rare /lpf; Nitrate Urine Negative (Negative); Protein Urine Negative (Negative); Specific Grav Ur 1.017 (1.001-1.035); Squamous Epithelial Cell Urine Occasional /hpf (Few); WBC Urine 0-3 /hpf
[2020-10-23] MEDS: SODIUM CHLORIDE 0.9% IV 1,000 ML 999 ML IV CONT (23:45)
[2020-10-23] MEDS: MORPHINE SULFATE (*CRX) 4 MG/ML INJ IV PUSH (23:46)
[2020-10-23] MEDS: ONDANSETRON INJ 4 MG/2 ML VIAL IV PUSH (23:46)
[2020-10-24] VITALS (7 sets, daily range): BP systolic 114–147; BP diastolic 56–78; PULSE 87–102; RESP 10–21; TEMP 36.2–36.7; O2SAT 97–100; BMI 28.5; BMI 29.1
--- NOTE | 2020-10-24 00:09 | ED.AMS ---
HPI - Altered Mental Status General Chief Complaint: Altered Mental Status <Rufina Cruz PA-C - Last Filed: 10/24/20 02:20> Stated Complaint: fall, head injury, confusion <Rufina Cruz PA-C - Last Filed: 10/24/20 02:20> Time Seen by Provider: 10/23/20 22:45 <Rufina Cruz PA-C - Last Filed: 10/24/20 02:20> Source: patient <LEO Ramirez Last Filed: 10/24/20 02:20> Mode of arrival: ambulatory <LEO Ramirez Last Filed: 10/24/20 02:20> Limitations: no limitations <LEO Ramirez Last Filed: 10/24/20 02:20> History of Present Illness HPI narrative: This is a 60-year-old female that presents to the emergency department for altered mental status. Per patient's last night she got up in the middle of the night and seemed to be confused. She got her back into bed. She awoke at 3 AM as she heard a loud noise. She found her laying on the floor in the living room. Reportedly she hit her head. Patient was alert, but still somewhat confused. Today she has been weak and not acting herself. Patient reports abdominal pain which has been ongoing for some time. She is currently seeing a GI doctor and had an outpatient HIDA scan scheduled. She also reports ongoing nausea and vomiting over the last couple of weeks. Denies fever, chest pain, shortness of breath, or dysuria. <Rufina Cruz PA-C - Last Filed: 10/24/20 02:20> Related Data Home Medications: Home Medications Medication Instructions Recorded Confirmed travoprost 0.004 % eye drops 1 drop LEFTEYE QPM 05/08/19 07/14/19 levothyroxine 75 mcg PO DAILY 06/26/19 07/14/19 Simbrinza 1 drp OPHTHALMIC (EYE) DAILY 07/15/19 07/15/19 timolol maleate 1 drp OPHTHALMIC (EYE) DAILY 07/15/19 07/15/19 furosemide 20 mg tablet 20 mg PO BID 03/05/20 spironolactone 100 mg tablet 100 mg PO DAILY 03/05/20 <Rufina Cruz PA-C - Last Filed: 10/24/20 02:20> Allergies/Adverse Reactions: Allergies Allergy/AdvReac Type Severity Reaction Status Date / Time nut - unspecified Allergy Intermediate Anaphylacti Verified 03/05/20 16:08 c amlodipine Allergy Mild swelling Verified 03/05/20 16:08 lamotrigine Allergy Unknown Other Verified 03/05/20 16:08 montelukast Allergy Unknown Rash Verified 03/05/20 16:08 oseltamivir [From Tamiflu] AdvReac Severe Unknown Verified 03/05/20 16:08 UNKNOWN ANESTHESIA MED Allergy Unknown Unknown Uncoded 03/05/20 16:08 <Rufina Cruz PA-C - Last Filed: 10/24/20 02:20> Review of Systems Review of Systems: Narrative: CONSTITUTIONAL: Denies fever CARDIOVASCULAR: Denies chest pain RESPIRATORY: Denies cough or dyspnea. GASTROINTESTINAL: Reports abdominal pain, nausea, vomiting GENITOURINARY: Denies dysuria NEUROLOGIC: Denies headache, numbness, or weakness. <Rufina Cruz PA-C - Last Filed: 10/24/20 02:20> All systems reviewed & are unremarkable except as noted in HPI and below <Rufina Cruz PA-C - Last Filed: 10/24/20 02:20> [facility] Past Medical History Medical History: Medical History Anxiety Arthritis Asthma Back injury Broken toe Multiple Cataracts, bilateral Only the right eye has been extracted and still has a cataract in the left CHF (congestive heart failure) Poorly documented Cirrhosis, nonalcoholic With a small volume of ascites noted on CT scan from February 2017 COPD (chronic obstructive pulmonary disease) COPD exacerbation Depression Essential hypertension Full dentures GERD (gastroesophageal reflux disease) Glaucoma Right eye History of angina Hyperlipidemia Hypothyroidism (acquired) Migraine Pneumonia Portal hypertension Short-term memory loss 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
[2020-10-24 00:22] LABS: Lactic Acid Reflex 1.5 mmol/L (0.7-2.1)
[2020-10-24 00:44] LABS: CRP 1.8 mg/dL (<1.0); Lipase 172 U/L (23-300)
--- NOTE | 2020-10-24 00:48 | PC.NURSE ---
Patient taken to CT.
[2020-10-24] MEDS: MORPHINE SULFATE (*CRX) 2 MG/ML INJ IV PUSH (02:18)
[2020-10-24 02:41] LABS: Ammonia 112 umol/L (9-30)
--- NOTE | 2020-10-24 03:34 | ADMGEN ---
This patient, Melissa Redding, was admitted to [address] [place] [address] Room 331-02. Patient/family oriented to hospital policies and general routines including ID bracelet, bed and alarms, visiting hours, pain management, procedures, bathroom and other care routines, personal items, smoking policy, room service/diet, and visiting hours. Information on how to activate the Rapid Response Team has been discussed. Patient/Family are encouraged to report perceived risks to care and to ask questions if they do not understand what they are told or what they should do.
[2020-10-24 10:30] LABS: Hematocrit 36.7 % (37.0-47.0); Hemoglobin 11.9 g/dL (12.0-15.0); Mean Corpuscular HGB Conc 32.4 g/dl (32-36); Mean Corpuscular Hemoglobin 32.7 pg (26-34); Mean Corpuscular Volume 100.8 fl (80-100); Mean Platelet Volume 10.3 fl (7.4-10.4); Platelet Count Result 81 k/mm3 (150-375); Red Blood Count 3.64 M/mm3 (4.2-5.4); Red Cell Distribution Width 15.3 % (11.5-14.5); White Blood Count 6.1 K/mm3 (4.5-10.0)
--- NOTE | 2020-10-24 10:51 | PM.IMHP ---
H&P: HPI History of Present Illness Date/Time: 10/24/20 10:51 Chief Complaint: Fall, confusion Narrative: Date of service: 10/24/20 Melissa Redding is a 60-year-old female with a history of non alcoholic cirrhosis of the liver with portal hypertension, COPD, asthma, hypertension and hyperlipidemia who presented to the emergency department on 10/24/2020 after a fall at home with concerns for confusion. Her is present at the bedside who provides most of the history. Last night around 3:00 a.m., she was coming back to the bathroom and fell in the living room. She fell on her right side and hit her right cheek and thorax. The patient's heard a crash and was able to help her up immediately after. She felt that she was confused almost like she was drunk, though she had not had anything to drink. Of note, the patient's notes she has been confused cord often on for about 2 years with frequent forgetfulness. The patients only complaint at this time is facial pain which she rates as 4/10 but notes that increases to 8/10 when she presses on the right zygomatic process. She denies back pain or rib pain. Upon presentation to the emergency department, her heart rate was 104, additional vital signs were stable, WBC 6.1, hemoglobin 11.9 hematocrit 36.9, platelets 101, creatinine 1.1 additional electrolytes stable, total bilirubin 1.3, urinalysis with no signs of infection, lactic 1.5, head CT negative, ribs and chest x-ray with no acute findings. She is being admitted to the hospitalist service for observation. Supervising physician for this history and physical is Dr. Lupe Lee. Review of Systems Review of Systems: Narrative: All systems reviewed with pertinent positives and negatives as per HPI. She feels weak. Her states she is very sedentary and overall deconditioned. She has a frontal headache. This is different than her typical migraines. She has been having issues with vomiting intermittently for the past 8 months. She does have a hiatus and scheduled with a photoengraving proofer apprentice. She has intermittent right upper quadrant pain that is worse after eating. She has been on a low-fat diet. No hematochezia, melena, or hematemesis. notes issues with constipation and will often go 1 week without having a bowel movement. She denies abdominal bloating or cramping. She had an unremarkable EGD and colonoscopy 1 year ago and there is no evidence for varices at that time. She denies shortness of breath or wheezes. Denies lower extremity edema. Denies pain in her back or her ribs. Notes intention tremor. Denies dysuria, urgency, frequency, or hematuria. She is established with Dr. Carlos Jones for her cirrhosis. [facility] Past Medical History Medical History (Updated 10/24/20 @ 11:53 by Josephine Zurita PA-C) Anxiety Arthritis Asthma Back injury Broken toe Multiple Cataracts, bilateral Only the right eye has been extracted and still has a cataract in the left CHF (congestive heart failure) Poorly documented Cirrhosis, nonalcoholic With a small volume of ascites noted on CT scan from February 2017 COPD (chronic obstructive pulmonary disease) Depression Essential hypertension Full dentures GERD (gastroesophageal reflux disease) Glaucoma Right eye History of angina Hyperlipidemia Hypothyroidism (acquired) Migraine Portal hypertension Short-term memory loss Chronic 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
[2020-10-24] MEDS: PANTOPRAZOLE 40 MG TABLET PO (10:59)
[2020-10-24] MEDS: LACTULOSE 20 GM/30 ML UDC PO ×4 (10:59→20:59)
[2020-10-24] MEDS: TIMOLOL MALEATE 0.5% OP SOLN 5 ML BOTTLE 1 DROP EACH EYE ×2 (10:59→20:59)
[2020-10-24] MEDS: ACETAMINOPHEN/ASPIRIN/CAFFEINE 250-250-65 MG TABLET 1 TABLET PO (11:48)
[2020-10-24] MEDS: LORazepam (*CRX) 0.5 MG TABLET PO (12:33)
[2020-10-24 12:36] LABS: Alanine Aminotransferase 17 U/L (4-35); Albumin Level 3.3 g/dL (3.5-5.1); Alkaline Phosphatase 85 U/L (38-126); Anion Gap 8 mmol/L (8-16); Aspartate Amino Transferase 40 U/L (14-36); Bilirubin,Total 1.5 mg/dL (0.2-1.3); Blood Urea Nitrogen 12 mg/dL (7-17); Calcium 9.9 mg/dL (8.4-10.2); Carbon Dioxide 20 mmol/L (22-30); Chloride 110 mmol/L (98-107); Estimated CRCL calculation 58 ml/min; Estimated Glomerular Filt Rate 56; Glucose 87 mg/dL (65-105); Sodium 138 mmol/L (137-145)
[2020-10-24] MEDS: FUROSEMIDE 20 MG TABLET PO (16:51)
[2020-10-24] MEDS: SUMAtriptan SUCCINATE 25 MG TABLET 100 MG PO (21:00)
[2020-10-25 06:00] VITALS: BP 156/81; PULSE 99; RESP 16; TEMP 37; O2SAT 97
[2020-10-25 06:40] LABS: INR 1.4; Prothrombin Time 17.7 Seconds (11.1-14.7)
[2020-10-25 06:42] LABS: Hemoglobin 13.3 g/dL (12.0-15.0); Immature Platelet Fraction Pct 4.4 % (0.9-11.2); Mean Corpuscular HGB Conc 33.3 g/dl (32-36); Mean Corpuscular Hemoglobin 32.4 pg (26-34); Mean Corpuscular Volume 97.6 fl (80-100); Mean Platelet Volume 10.4 fl (7.4-10.4); Platelet Count Result 105 k/mm3 (150-375); White Blood Count 6.8 K/mm3 (4.5-10.0)
[2020-10-25 06:44] LABS: Alanine Aminotransferase 17 U/L (4-35); Albumin Level 3.5 g/dL (3.5-5.1); Alkaline Phosphatase 90 U/L (38-126); Anion Gap 7 mmol/L (8-16); Aspartate Amino Transferase 43 U/L (14-36); Bilirubin,Total 2.2 mg/dL (0.2-1.3); Blood Urea Nitrogen 12 mg/dL (7-17); Calcium 10.2 mg/dL (8.4-10.2); Carbon Dioxide 27 mmol/L (22-30); Chloride 108 mmol/L (98-107); Estimated CRCL calculation 48 ml/min; Estimated Glomerular Filt Rate 46; Glucose 81 mg/dL (65-105); Potassium 4.1 mmol/L (3.4-5.0); Sodium 142 mmol/L (137-145)
[2020-10-25] MEDS: LACTULOSE 20 GM/30 ML UDC PO (10:57)
[2020-10-25] MEDS: PANTOPRAZOLE 40 MG TABLET PO (10:58)
[2020-10-25] MEDS: FUROSEMIDE 20 MG TABLET PO ×2 (10:58→17:51)
[2020-10-25] MEDS: TIMOLOL MALEATE 0.5% OP SOLN 5 ML BOTTLE 1 DROP EACH EYE ×2 (10:58→20:35)
--- NOTE | 2020-10-25 11:44 | PCOTNOTE ---
Patient is currently demonstrated participation with ADLs at a level consistent with PLOF, skilled OT no longer indicated at this time.
[2020-10-25] MEDS: lamoTRIgine 100 MG TABLET PO (13:10)
[2020-10-25] MEDS: SPIRONOLACTONE 50 MG TABLET 100 MG PO (13:10)
[2020-10-25 14:00] VITALS: BP 140/66; PULSE 95; RESP 16; TEMP 36.7; O2SAT 95
--- NOTE | 2020-10-25 15:36 | PM.IMPN ---
Progress Note: A&P Assessment and Plan (1) Fall: Qualifiers: Encounter type: initial encounter Qualified Code(s): W19.XXXA - Unspecified fall, initial encounter Code(s): W19.XXXA - Unspecified fall, initial encounter Status: Acute Assessment and Plan: Unwitnessed fall at home while walking to her bedroom. Hit her right side face. She was assisted up immediately following. Head CT and cervical spine CT negative for acute findings with age-indeterminate T3 compression fracture, though no back pain. Obtain facial bone CT: No Fracture Fall precautions Appreciate PT/OT eval (2) Hepatic encephalopathy: Code(s): K72.90 - Hepatic failure, unspecified without coma Status: Acute Assessment and Plan: Presented with increased confusion. Ammonia is elevated at 112 in the setting of cirrhosis with portal HTN and she has asterixis on exam. Begin lactulose.and monitor bowel patterns, BM today Consider transition to Xifaxin once having regular stools (3) Cirrhosis, nonalcoholic: Code(s): K74.60 - Unspecified cirrhosis of liver Status: Acute Assessment and Plan: Established with liver specialist. No ascites evident on exam or imaging. LFTs are stable. Abdomen within normal limits. Platelet count is stable. Continue home regimen spironolactone 100mg PO Daily and furosemide 20mg PO BID Low-sodium diet (4) Hypothyroidism (acquired): Code(s): E03.9 - Hypothyroidism, unspecified Status: Chronic Assessment and Plan: She reports she has not taken her levothyroxine in some time due to hair loss. Will check reflex TSH normal at 1.30. This may be contributing to her overall weakness (5) Hypertension: Code(s): I10 - Essential (primary) hypertension Status: Acute Assessment and Plan: Blood pressure reviewed and has been fairly well controlled. Last BP 114/62. Continue spironolactone and furosemide. Hold lisinopril given JAXSON Monitor BP trends (6) Acute kidney injury: Code(s): N17.9 - Acute kidney failure, unspecified Status: Acute Assessment and Plan: Creatinine is elevated Baseline is 0.8 Today creatinine is 1.20 Avoid nephrotoxic medications Trend creatinine Labs in the am Subjective Date/time seen: 10/25/20 08:50 Interval history: Melissa Redding is a 60-year-old female with a history of non alcoholic cirrhosis of the liver with portal hypertension, COPD, asthma, hypertension and hyperlipidemia who presented to the emergency department on 10/24/2020 after a fall at home with concerns for confusion. I talked to the patient alone at breakfast and she was able to answer my questions. She stated that was for pain was on the right side it felt almost like a broken rib. She also stated that she takes Tylenol 3 for pain along with that she takes a muscle relaxer together. At this current time she has no complaints no chest pain, shortness of breath, nausea, vomiting, abdominal pain, dizziness, headache, or lightheadedness. Later in the day and went back to talk to the patient about some of the medications that she was for asking about. At that time her Rosana Tomlin was in when the room with her an asked me about her confusion. I explained her that I thought that the patient was taking too many medicines the same time. It was confirmed that the patient is not even giving her oral meds that her Rosana is giving her the medications. I explained her that I think that her medications might be too much for her however I am on a few more tests to see if maybe it some other etiology. The stated the patient is no longer taking the muscle relaxer at that she has never been on Tylenol 3 however while was in there the patient only had an Xanax 0.5 mg and was almost unarousable. Looks like the patient is also getting codeine sulfate. I asked Rosana if this is what she
[2020-10-25] MEDS: ALPRAZolam (*CRX) 0.5 MG TABLET PO (20:35)
[2020-10-25 22:00] VITALS: BP 117/60; PULSE 86; RESP 18; TEMP 36.4; O2SAT 96
[2020-10-26 06:00] VITALS: BP 144/66; PULSE 85; RESP 16; TEMP 36.2; O2SAT 98
[2020-10-26 06:41] LABS: Basophils Percent Auto 0.3 % (0.2-1.2); Eosinophils Absolute Auto 0.3 K/mm3 (0-0.3); Eosinophils Percent Auto 4.2 % (0-4.4); Hematocrit 37.2 % (37.0-47.0); Hemoglobin 12.1 g/dL (12.0-15.0); Immature Granulocyte Absolute 0.02 K/mm3 (0.00-0.031); Immature Granulocyte Percent A 0.3 % (0-0.5); Lymphocytes Absolute Auto 1.61 K/mm3 (0.9-3.2); Lymphocytes Percent Auto 25.3 % (18.3-44.2); Mean Corpuscular HGB Conc 32.5 g/dl (32-36); Mean Corpuscular Hemoglobin 32.4 pg (26-34); Mean Corpuscular Volume 99.5 fl (80-100); Mean Platelet Volume 10.8 fl (7.4-10.4); Monocytes Absolute Auto 0.5 K/mm3 (0.1-0.6); Monocytes Percent Auto 7.4 % (2.6-8.5); Neutrophils Percent Auto 62.5 % (45.5-73.1); Platelet Count Result 94 k/mm3 (150-375); Red Blood Count 3.74 M/mm3 (4.2-5.4); Red Cell Distribution Width 14.9 % (11.5-14.5); White Blood Count 6.4 K/mm3 (4.5-10.0)
[2020-10-26 07:05] LABS: Alanine Aminotransferase 17 U/L (4-35); Albumin Level 3.1 g/dL (3.5-5.1); Alkaline Phosphatase 74 U/L (38-126); Anion Gap 5 mmol/L (8-16); Aspartate Amino Transferase 44 U/L (14-36); Bilirubin,Total 1.4 mg/dL (0.2-1.3); Blood Urea Nitrogen 11 mg/dL (7-17); Calcium 8.9 mg/dL (8.4-10.2); Carbon Dioxide 24 mmol/L (22-30); Chloride 104 mmol/L (98-107); Estimated CRCL calculation 71 ml/min; Estimated Glomerular Filt Rate > 60; Glucose 110 mg/dL (65-105); Potassium 3.6 mmol/L (3.4-5.0); Sodium 133 mmol/L (137-145)
[2020-10-26] MEDS: lamoTRIgine 100 MG TABLET PO (09:16)
[2020-10-26] MEDS: FUROSEMIDE 20 MG TABLET PO (09:16)
[2020-10-26] MEDS: PANTOPRAZOLE 40 MG TABLET PO (09:16)
[2020-10-26] MEDS: TIMOLOL MALEATE 0.5% OP SOLN 5 ML BOTTLE 1 DROP EACH EYE (09:16)
[2020-10-26] MEDS: SPIRONOLACTONE 50 MG TABLET 100 MG PO (09:17)
--- NOTE | 2020-10-26 13:02 | PM.DS ---
DS: Admitting Diagnosis Admitting Diagnosis Admitting Diagnosis: Fall DS: Discharge Diagnosis Discharge Diagnosis (1) Fall: Qualifiers: Encounter type: initial encounter Qualified Code(s): W19.XXXA - Unspecified fall, initial encounter Code(s): W19.XXXA - Unspecified fall, initial encounter Status: Acute Assessment and Plan: Unwitnessed fall at home while walking to her bedroom. Hit her right side face. She was assisted up immediately following. Head CT and cervical spine CT negative for acute findings with age-indeterminate T3 compression fracture, though no back pain. Obtain facial bone CT: No Fracture Fall precautions Appreciate PT/OT eval (2) Hepatic encephalopathy: Code(s): K72.90 - Hepatic failure, unspecified without coma Status: Acute Assessment and Plan: Presented with increased confusion. Ammonia is elevated at 112 in the setting of cirrhosis with portal HTN and she has asterixis on exam. Begin lactulose.and monitor bowel patterns, BM today Consider transition to Xifaxin once having regular stools (3) Cirrhosis, nonalcoholic: Code(s): K74.60 - Unspecified cirrhosis of liver Status: Acute Assessment and Plan: Established with liver specialist. No ascites evident on exam or imaging. LFTs are stable. Abdomen within normal limits. Platelet count is stable. Continue home regimen spironolactone 100mg PO Daily and furosemide 20mg PO BID Low-sodium diet (4) Hypothyroidism (acquired): Code(s): E03.9 - Hypothyroidism, unspecified Status: Chronic Assessment and Plan: She reports she has not taken her levothyroxine in some time due to hair loss. Will check reflex TSH normal at 1.30. This may be contributing to her overall weakness (5) Hypertension: Qualifiers: Hypertension type: essential hypertension Qualified Code(s): I10 - Essential (primary) hypertension Code(s): I10 - Essential (primary) hypertension Status: Acute Assessment and Plan: Blood pressure reviewed and has been fairly well controlled. Last BP 114/62. Continue spironolactone and furosemide. Hold lisinopril given JAXSON Monitor BP trends (6) Acute kidney injury: Code(s): N17.9 - Acute kidney failure, unspecified Status: Acute Assessment and Plan: Creatinine is elevated Baseline is 0.8 Today creatinine is 1.20 Avoid nephrotoxic medications Trend creatinine Labs in the am DS: Summary Hospital Course Hospital Course: Patient is a 60 year old female with a past medical history of non alcoholic cirrhosis of the liver with portal hypertension, COPD, asthma, hypertension and hyperlipidemia who presented to the emergency department on 10/24/2020 after a fall at home with concerns for confusion. All of the labs were negaitive, normal, and stable. She did have a head ct the showed normal brain. She also had a carotid ultrasound that also just showed that the patient had 50-60% blockage of the left carotid artery. Abdomen and pelvis CT just showed that she had the chronic cirrhosis and splenomegaly, the facial CT showed no broken bones or fractures in her face from the fall, cervical spine CT just showed that the patient had a compression fracture at T4. Chest x-ray was negative with no cardiopulmonary findings. I do believe that this is related to the medications the patient's taking. For example yesterday when it she was given a Xanax 0.5 she was out and could not hold of conversation nor could she responder hold her head up. I did talk to her and her about cutting back her medications and giving her diuretics during the day that instead of at night. Further conversations led into that night she got a stomach pill describes to me is blue and small, and when she got up to use the bathroom she went into the other room that was not the bathroom and then fell. This nicky
[2020-10-26] MEDS: HYDROcodone/acetaminophen (*CRX) 5-325 MG TABLET 1 TAB PO (13:53)
== END 2020-10-26 14:25 | disposition home or self-care (01) ==
LOC: ANHED 10-24 02:11 → ANH3MEDSUR 10-24 02:23
PROVIDERS: Nurse Practitioner; Physician Assistant; Admitting Provider Internal Medicine; Emergency Provider Emergency Medicine; PCP Family Medicine; Visit Provider Physician Assistant
DX: K72.90 Hepatic failure, unspecified without coma (principal); K74.60 Unspecified cirrhosis of liver; E03.9 Hypothyroidism, unspecified; I10 Essential (primary) hypertension; N17.9 Acute kidney failure, unspecified; G93.41 Metabolic encephalopathy; R53.1 Weakness; S09.93XA Unspecified injury of face, initial encounter; W18.30XA Fall on same level, unspecified, initial encounter; I65.23 Occlusion and stenosis of bilateral carotid arteries; K21.9 Gastro-esophageal reflux disease without esophagitis; J44.9 Chronic obstructive pulmonary disease, unspecified; F41.8 Other specified anxiety disorders; E78.5 Hyperlipidemia, unspecified; K76.6 Portal hypertension; H40.9 Unspecified glaucoma; H26.9 Unspecified cataract; Z98.1 Arthrodesis status; Z87.891 Personal history of nicotine dependence; F12.90 Cannabis use, unspecified, uncomplicated; Z79.51 Long term (current) use of inhaled steroids
CPT/HCPCS: 36415; 51701; 70450; 70486; 71045; 71100; 72125; 74176; 80053; 81001; 82140; 83605; 83690; 84443; 85025; 85027; 85055; 85610; 86140; 87040; 93005; 93880; 96361; 96365; 96367; 96375; 96376; 97116; 97161; 97165; 97530; 97535; 99285; A9270; G0378; J0456; J0696; J2270; J2405; J7030

== ENCOUNTER → 2021-05-30 01:20 | Outpatient (CLI) | payer MEDICARE, SELFPAY ==
[2021-05-30 18:23] LABS: SARS-CoV-2 RNA PCR Negative
== END ==
PROVIDERS: PCP Family Medicine; Visit Provider Physician Assistant Medical
DX: R09.89 Other specified symptoms and signs involving the circulatory and respiratory systems (principal); Z20.822 Contact with and (suspected) exposure to COVID-19
CPT/HCPCS: C9803; U0003; U0005

== ENCOUNTER 2021-07-29 01:13 | Emergency (ER) | payer MEDICARE, SELFPAY ==
[2021-07-29 01:14] VITALS: BP 139/74; PULSE 75; RESP 20; TEMP 37; O2SAT 96
[2021-07-29] MEDS: SODIUM CHLORIDE 0.9% IV 1,000 ML 999 ML IV CONT (01:26)
[2021-07-29] MEDS: ONDANSETRON INJ 4 MG/2 ML VIAL IV PUSH (01:26)
--- NOTE | 2021-07-29 01:32 | ED.NAVMDI ---
HPI - Nausea/Vomiting/Diarrhea General Chief complaint: Nausea/Vomiting/Diarrhea <Doroteo Holt APRN - Last Filed: 07/29/21 01:38> Stated complaint: unresponsive episode after eating edible <Doroteo Holt APRN - Last Filed: 07/29/21 01:38> Time Seen by Provider: 07/29/21 04:20 <Doroteo Holt GUEST RELATIONS RECEPTIONIST - Last Filed: 07/29/21 01:38> History of Present Illness HPI Narrative: 60-year-old female presents to the emergency room via EMS complaints of nausea vomiting. According to the family patient ate a THC gummy at 5 hours prior to arrival. 2 hours after ingesting the THC gummy, patient became unconscious. About an hour prior to arrival patient began vomiting, and currently is able to answer questions <Doroteo Holt APRN - Last Filed: 07/29/21 01:38> Related Data Home medications: Home Medications Medication Instructions Recorded Confirmed travoprost 0.004 % eye drops 1 drop LEFTEYE QPM 05/08/19 04/29/21 timolol maleate 1 drp OPHTHALMIC (EYE) BID 07/15/19 04/29/21 furosemide 20 mg tablet 20 mg PO BID 03/05/20 04/29/21 biotin 1,000 mcg PO DAILY 10/24/20 04/29/21 diphenhydramine HCl [Benadryl] 25 mg PO HS PRN 10/24/20 04/29/21 <Doroteo Holt APRN - Last Filed: 07/29/21 01:38> Allergies/Adverse reactions: Allergies Allergy/AdvReac Type Severity Reaction Status Date / Time nut - unspecified Allergy Severe Anaphylacti Verified 05/29/21 13:53 c amlodipine Allergy Mild swelling Verified 05/29/21 13:53 lamotrigine Allergy Unknown Other Verified 05/29/21 13:53 montelukast Allergy Unknown Rash Verified 05/29/21 13:53 oseltamivir [From Tamiflu] AdvReac Severe Unknown Verified 05/29/21 13:53 UNKNOWN ANESTHESIA MED Allergy Unknown Unknown Uncoded 05/29/21 13:53 <Doroteo Holt APRN - Last Filed: 07/29/21 01:38> Review of Systems Review of Systems: CONSTITUTIONAL: Denies fever, chills, or sweats. EYES: Denies visual changes, redness, or discharge. ENT: Denies rhinorrhea, congestion, sore throat, or otalgia. CARDIOVASCULAR: Denies chest pain, palpitations, or edema. RESPIRATORY: Denies cough or dyspnea. GASTROINTESTINAL: Reports nausea GENITOURINARY: Denies dysuria or hematuria. SKIN: Denies rash or itching. MUSCULOSKELETAL: Denies back pain, joint pain, or myalgia. NEUROLOGIC: Denies headache, numbness, dizziness, or weakness. PSYCHIATRIC: Denies anxiety or depression. <Doroteo Holt APRN - Last Filed: 07/29/21 01:38> [facility] Past Medical History Medical History: Medical History Anxiety Arthritis Asthma Back injury BMI 31.0-31.9,adult BMI 31.0-31.9,adult Broken toe Multiple Cataracts, bilateral Only the right eye has been extracted and still has a cataract in the left CHF (congestive heart failure) Poorly documented Cirrhosis, nonalcoholic With a small volume of ascites noted on CT scan from February 2017 COPD (chronic obstructive pulmonary disease) Depression Essential hypertension Full dentures GERD (gastroesophageal reflux disease) Glaucoma Right eye History of angina Hyperlipidemia Hypothyroidism (acquired) Migraine Portal hypertension Short-term memory loss 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
[2021-07-29 02:35] VITALS: BP 125/71; PULSE 76; RESP 16; O2SAT 98
[2021-07-29 03:49] VITALS: BP 131/86; PULSE 76; RESP 16; O2SAT 98
[2021-07-29 04:47] VITALS: BP 108/55; PULSE 78; RESP 16; O2SAT 98
[2021-07-29 06:24] VITALS: BP 105/67; PULSE 75; RESP 16; O2SAT 98
[2021-07-29] MEDS: ACETAMINOPHEN 500 MG TABLET 1000 MG PO (06:54)
[2021-07-29 07:17] VITALS: BP 110/72; PULSE 75; RESP 16; O2SAT 98
== END 2021-07-29 07:17 | disposition home or self-care (01) ==
PROVIDERS: Emergency Provider Emergency Medicine; PCP Family Medicine
DX: T40.711A Poisoning by cannabis, accidental (unintentional), initial encounter (principal); I50.9 Heart failure, unspecified; I11.0 Hypertensive heart disease with heart failure; J44.9 Chronic obstructive pulmonary disease, unspecified; E78.5 Hyperlipidemia, unspecified; K74.60 Unspecified cirrhosis of liver; K76.6 Portal hypertension; E03.9 Hypothyroidism, unspecified; H40.9 Unspecified glaucoma; K21.9 Gastro-esophageal reflux disease without esophagitis; M19.90 Unspecified osteoarthritis, unspecified site; H26.9 Unspecified cataract; Z90.81 Acquired absence of spleen; Z98.41 Cataract extraction status, right eye; Z98.1 Arthrodesis status; Z87.891 Personal history of nicotine dependence; F41.9 Anxiety disorder, unspecified; F32.A Depression, unspecified
CPT/HCPCS: 96361; 96374; 99284; A9270; J2405; J7030

== ENCOUNTER → 2021-08-01 08:04 | Outpatient (CLI) | payer MEDICARE, SELFPAY ==
--- NOTE | ~2021-08-01 | CT_ITS ---
EXAMINATION: CT lumbar spine [facility] EXAM DATE: 08/01/2021 08:24 INDICATION: Lumbar radiculopathy. Low back pain and bilateral leg pain. TECHNIQUE: Spiral CT of the lumbar spine was performed without contrast. Axial, coronal and sagittal images lumbar spine were reviewed. The dose-length product (DLP) for this examination was 924.56 mG y-cm. The exposure was tailored according to patient size (auto mA exposure control), and iterative reconstruction (ASIR) was used as additional dose reduction technique. There is no prior study for comparison. FINDINGS: There is spine stimulator pack or pain pump along the right flank. Posterior fusion hardwar e L2-S1 with screws at all these levels except L3. Bilateral laminotomy suspected at L2, L3 and L4. P robable L5 laminectomies. There is no lucency surrounding the pedicular screws. Vertical rods are int act. There are no acute fractures identified. The vertebral bodies are aligned in the AP dimension. Mild sigmoid diverticulosis. Level by level evaluation: T12-L1: There is a moderate diffuse disc bulge. Facet arthropathy: Mild. Neural foraminal stenosis: Mild. Central canal stenosis: No stenosis. L1-L2: There is a mild diffuse disc bulge. Facet arthropathy: Moderate. Neural foraminal stenosis: No stenosis. Central canal stenosis: No stenosis. L2-L3: There is a moderate diffuse disc bulge. Facet arthropathy: Fused. Neural foraminal stenosis: Moderate right, mild to moderate left. Central canal stenosis: Posterior decompression. L3-L4: There is a mild diffuse disc bulge. Facet arthropathy: Fused. Neural foraminal stenosis: Mild to moderate right, mild left. Central canal stenosis: Posterior decompression. L4-L5: There is a mild diffuse disc bulge. Facet arthropathy: Fused. Neural foraminal stenosis: Mild bilateral. Central canal stenosis: Posterior decompression. L5-S1: There is a mild diffuse disc bulge. Facet arthropathy: Fused. Neural foraminal stenosis: Mild to moderate left, mild right. Central canal stenosis: Posterior decompression. IMPRESSION: 1. Intact L2-S1 fusion. 2. L2-3 neural foramen most narrowed on the exam. Reviewed, dictated and finalized at location B.
== END ==
PROVIDERS: PCP Family Medicine; Visit Provider Nurse Practitioner Adult Health
DX: M47.25 Other spondylosis with radiculopathy, thoracolumbar region (principal); M48.05 Spinal stenosis, thoracolumbar region; M47.27 Other spondylosis with radiculopathy, lumbosacral region; M48.07 Spinal stenosis, lumbosacral region
CPT/HCPCS: 72131

== ENCOUNTER 2023-10-26 12:30 | Outpatient (RCR) | payer MEDICARE, SELFPAY ==
--- NOTE | 2023-10-21 11:12 | PTOPEVAL1 ---
Assessment and note entered by Eboni Hill, PT Evaluation Information Assessment Status Evaluation Diagnosis L knee pain/ MCL strain Onset fall in July Subjective Information fall and increase pain L knee; pain is less now compared to when first hurt it; previous L knee arthroscopy and multiple dislocations of knee; MRI L knee: report states rupture PCL and MCL, tricompartmental OA, medical meniscal tear, large joint effusion, small popliteal cyst, multiple intra articular loose bodies. told her to try therapy and if it does not help her knee, may need a TKR. Activity: use large base quad cane for the past few years due to back pain; not working outside of the home; live with significant other, who does cooking, cleaning, laundry; she is indep with bathing, dressing and light home tasks. have basement at home--do not go down often due to back pain, but since hurt knee, have not gone downstairs. Reported Pain Level Pain Score Self Report Additional Pain Score Comments pain range in the past few days 2-10/10; stabbing pain medial and lateral knee joint, over mid patella increase pain- walking, rolling in bed decrease pain- sit, rest, ice, knee brace have knee brace, did not wear to therapy today Assessment PT Clinical Summary Melissa has L knee pain, s/p fall with changes on MRI. Medical history includes chronic back pain, bilateral knee pain and OA, L knee arthroscopy, multiple back surgeries with spinal cord nerve stimulator for pain. She uses a quad cane due to pain in her back. Pain has decreased since onset after fall and have had fluid drained from knee. told her if therapy does not help, may have to have a TKR. With the evaluation: decreased ROM and strength of L knee due to pain: sitting active ROM is (-15') to 80'; 2 minute walking test distance of 140' with quad cane, 1 standing rest break due to pain and pain increase to 7/10;
--- NOTE | 2023-10-21 11:12 | OPREHPOC ---
Outpatient Therapy Plan of Care This is a Multidisciplinary Plan of Care that may contain components documented by all disciplines (PT, OT, and ST.) PT Problem 1 PT Problem #1 Knowledge Deficit PT Goal 1 Goal *indep with HEP Target Visit 8 PT Problem 2 PT Problem #2 Pain PT Goal 1 Goal 1* pt report pain rating at worst of 7/10 2* self assessment LE functional scale rating of 62% limitation in activity Target Visit 8 PT Problem 3 PT Problem #3 Impaired Functional Mobility PT Goal 1 Goal 1* 2 minute walking test distance of 170' 2* no stopping with 2 minute walking test 3* pt report able to go up/down her basement stairs at home without any issues Target Visit 8 PT Problem 4 PT Problem #4 Impaired Range of Motion PT Goal 1 Goal active L knee ROM in sitting 1* extension (-5') 2* flexion 100' Target Visit 8 PT Problem 5 PT Problem #5 Impaired Strength PT Goal 1 Goal increase strength of L hip/knee for support to knee joint 1* pt able to perform sitting and mat exercises x 20 reps Target Visit 8
--- NOTE | 2023-11-02 08:20 | PCPTNOTE ---
Pt canceled due to MD appt.
--- NOTE | 2023-11-13 13:09 | PCPTNOTE ---
Pt NS visit today.
--- NOTE | 2023-11-16 15:28 | PCPTNOTE ---
Pt cancelling all appts due to complications and upcoming surgery.
--- NOTE | 2023-11-17 10:15 | PTOPDC ---
Assessment and note entered by Eboni Hill, PT Discharge Report Assessment Status Discharge - Pt Not Present Diagnosis L knee pain/ MCL strain Onset fall in July Subjective Information Melissa called and canceled her PT appointments-- stated going to have surgery. Assessment PT Clinical Summary Melissa has had 2 PT sessions, on October 20 & . Two appointments were canceled and one no show. Discharge PT due pt called and canceled remaining appointments. The goals were not addressed. Plan of Care PT Services Indicated No
== END 2023-11-17 12:45 | disposition home or self-care (01) ==
LOC: ANHPT 12:30
PROVIDERS: PCP Family Medicine
DX: S89.90XD Unspecified injury of unspecified lower leg, subsequent encounter (principal)
CPT/HCPCS: 97110; 97113; 97161; 97530

== ENCOUNTER 2023-12-01 14:00 | Outpatient (CLI) | payer MEDICARE, SELFPAY ==
--- NOTE | ~2023-12-01 | US_ITS ---
US pelvic complete w TV Ordering provider: Mei Stevens APRN History: . N95.0 - Postmenopausal bleeding . Comparison: None. Technique: Transabdominal and endovaginal ultrasound of the pelvis (Doppler ultrasound interrogation techniques used as needed for this exam.) FINDINGS: CERVIX: Normal. UTERUS: Measures 5x 2.3x 3.4 cm in length which is within normal limits and is anteverted. No myomet rial masses. ENDOMETRIUM: Normal in thickness measuring 2.8 mm. (Note: the premenopausal endometrium may measure u p to 16 mm when in the secretory phase.) No endometrial masses, cysts or fluid. CUL DE SAC: Large amount of free fluid. RIGHT OVARY: Not visualized. LEFT OVARY: Not visualized. ADNEXA: Normal. No mass. IMPRESSION: Large amount of free fluid and pelvis. Otherwise, normal pelvic ultrasound. Reviewed, dictated and finalized at location A.
== END 2023-12-01 14:01 | disposition home or self-care (01) ==
PROVIDERS: PCP Nurse Practitioner Family; Visit Provider Nurse Practitioner Family
DX: N95.0 Postmenopausal bleeding (principal)
CPT/HCPCS: 76830; 76856

== ENCOUNTER 2023-12-02 12:44 | Outpatient (CLI) | payer MEDICARE, SELFPAY ==
[2023-12-02 13:32] LABS: Alanine Aminotransferase 24 U/L (6-35); Albumin Level 3.1 g/dL (3.5-5.1); Alkaline Phosphatase 113 U/L (38-126); Anion Gap 10 mmol/L (4-12); Aspartate Amino Transferase 48 U/L (14-36); Bilirubin,Total 2.7 mg/dL (0.2-1.3); Blood Urea Nitrogen 6 mg/dL (7-17); Calcium 8.6 mg/dL (8.4-10.2); Carbon Dioxide 22 mmol/L (22-30); Chloride 107 mmol/L (98-107); Estimated Glomerular Filt Rate > 60; Glucose 112 mg/dL (65-110); Potassium 3.4 mmol/L (3.4-5.0); Sodium 139 mmol/L (137-145)
== END 2023-12-02 12:45 | disposition home or self-care (01) ==
PROVIDERS: PCP Family Medicine; Visit Provider Obstetrics & Gynecology
DX: Z86.2 Personal history of diseases of the blood and blood-forming organs and certain disorders involving the immune mechanism (principal)
CPT/HCPCS: 36415; 80053

== ENCOUNTER 2023-12-09 12:56 | Outpatient (CLI) | payer MEDICARE, SELFPAY ==
[2023-12-09 14:11] LABS: Hematocrit 42.3 % (37.0-47.0); Hemoglobin 13.9 g/dL (12.0-15.0); Immature Platelet Fraction Pct 3.4 % (0.9-11.2); Mean Corpuscular HGB Conc 32.9 g/dl (32-36); Mean Corpuscular Hemoglobin 31.4 pg (26-34); Mean Corpuscular Volume 95.7 fl (80-100); Mean Platelet Volume 10.4 fl (7.4-10.4); Platelet Count Result 94 k/mm3 (150-375); Red Blood Count 4.42 M/mm3 (4.2-5.4); Red Cell Distribution Width 17.2 % (11.5-14.5); White Blood Count 5.3 K/mm3 (4.5-10.0)
[2023-12-09 14:22] LABS: INR 1.6; Prothrombin Time 19.4 Seconds (11.1-14.7)
[2023-12-09 14:23] LABS: Partial Thromboplastin Time 37.3 Seconds (22.3-36.8)
== END 2023-12-09 12:57 | disposition home or self-care (01) ==
PROVIDERS: PCP Family Medicine; Referring Provider Anesthesiology; Visit Provider Obstetrics & Gynecology
DX: Z01.818 Encounter for other preprocedural examination (principal); K74.60 Unspecified cirrhosis of liver; D69.6 Thrombocytopenia, unspecified
CPT/HCPCS: 36415; 85027; 85055; 85610; 85730

== ENCOUNTER 2023-12-28 11:53 | Outpatient (CLI) | payer MEDICARE, SELFPAY ==
[2023-12-28 12:13] LABS: Basophils Absolute Auto 0.1 K/mm3 (0.0-0.1); Basophils Percent Auto 1.3 % (0.2-1.2); Eosinophils Absolute Auto 0.8 K/mm3 (0-0.3); Eosinophils Percent Auto 12.7 % (0-4.4); Hematocrit 41.6 % (37.0-47.0); Hemoglobin 13.7 g/dL (12.0-15.0); Immature Granulocyte Absolute 0.02 K/mm3 (0.00-0.031); Immature Granulocyte Percent A 0.3 % (0-0.5); Immature Platelet Fraction Pct 2.5 % (0.9-11.2); Lymphocytes Absolute Auto 1.59 K/mm3 (0.9-3.2); Lymphocytes Percent Auto 26.3 % (18.3-44.2); Mean Corpuscular HGB Conc 32.9 g/dl (32-36); Mean Corpuscular Hemoglobin 31.4 pg (26-34); Mean Corpuscular Volume 95.4 fl (80-100); Mean Platelet Volume 10.4 fl (7.4-10.4); Monocytes Absolute Auto 0.5 K/mm3 (0.1-0.6); Monocytes Percent Auto 8.3 % (2.6-8.5); Neutrophils Absolute Auto 3.1 K/mm3 (1.3-6.7); Neutrophils Percent Auto 51.1 % (45.5-73.1); Platelet Count Result 111 k/mm3 (150-375); Red Blood Count 4.36 M/mm3 (4.2-5.4); White Blood Count 6.1 K/mm3 (4.5-10.0)
[2023-12-28 12:37] LABS: Alanine Aminotransferase 21 U/L (6-35); Albumin Level 3.1 g/dL (3.5-5.1); Alkaline Phosphatase 113 U/L (38-126); Anion Gap 6 mmol/L (4-12); Aspartate Amino Transferase 51 U/L (14-36); Bilirubin,Total 2.7 mg/dL (0.2-1.3); Blood Urea Nitrogen 7 mg/dL (7-17); Calcium 8.4 mg/dL (8.4-10.2); Carbon Dioxide 28 mmol/L (22-30); Chloride 103 mmol/L (98-107); Estimated Glomerular Filt Rate > 60; Glucose 93 mg/dL (65-110); Potassium 3.4 mmol/L (3.4-5.0); Sodium 137 mmol/L (137-145)
[2023-12-28 13:45] LABS: Iron 131 ug/dL (37-170)
[2023-12-28 13:52] LABS: Folic Acid 4.3 ng/mL (2.76->20); Vitamin B12 > 1000.0 pg/mL (239-931)
[2023-12-28 13:54] LABS: Percent Iron Saturation 49 % (20-50)
[2024-01-01 14:18] LABS: Methylmalonic Acid 200 nmol/L (69-390)
[2024-01-04 12:18] LABS: Soluble Transferrin Receptor 3.18 mg/L (0.76-1.76)
[2024-01-06 00:14] LABS: Platelet Antibody, Direct NEGATIVE (NEGATIVE)
== END 2023-12-28 11:54 | disposition home or self-care (01) ==
LOC: ANHLAB 11:54
PROVIDERS: Nurse Practitioner Family; PCP Family Medicine; Visit Provider Internal Medicine Hematology & Oncology
DX: D69.6 Thrombocytopenia, unspecified (principal); D50.9 Iron deficiency anemia, unspecified
CPT/HCPCS: 36415; 80053; 82607; 82728; 82746; 83540; 83550; 83921; 84238; 85025; 85055; 86023

== ENCOUNTER 2024-01-06 08:55 | Outpatient (CLI) | payer MEDICARE, SELFPAY ==
--- NOTE | ~2024-01-06 | US_ITS ---
US abdomen limited 01/06/2024 09:12 Indication: Thrombocytopenia Procedure: High-resolution Limited ultrasound of the left upper abdomen Comparison: CT dated 10/24/2020 Findings: Spleen is enlarged measuring 15 cm. No focal splenic masses. No abnormal fluid in the left upper abdomen. Impression: 1: Splenomegaly. Reviewed, dictated and finalized at location B. Impression: 1: Splenomegaly.
== END 2024-01-06 08:56 | disposition home or self-care (01) ==
LOC: MICIMG 08:56
PROVIDERS: PCP Family Medicine; Visit Provider Family Medicine
DX: D69.6 Thrombocytopenia, unspecified (principal)
CPT/HCPCS: 76705

== ENCOUNTER 2024-02-19 00:40 | Day surgery (SDC) | payer MEDICARE, SELFPAY ==
[2023-12-08 15:38] VITALS: BMI 32.3
--- NOTE | 2023-12-08 16:03 | PC.NURSE ---
Report to the Outpatient Waiting Room, entrance under the green pavilion located off [facility], at time __11:45AM on date __12/11/23 . Planned Procedure Time: __1:45PM . Time changes happen often and if your time is changed the preop area will call you the afternoon before. - You and your visitor will be asked to self-screen and do not enter if you have any COVID symptoms. - A mask is optional within the hospital at this time. Patients may have clear liquids (water, carbonated beverages, clear teas, apple juice) until 3 hours prior to surgery with a maximum of 20 ounces. - No food from midnight until time of surgery. Take the following medications with a SIP of water the morning of surgery: __AM EYE DROPS, WIXELA INHALER. MAY TAKE NEEDED_ ALBUTEROL INHALER/NEBULIZER, ALPRAZOLAM, IMITREX DO NOT STOP ANY OF YOUR OTHER PRESCRIPTION MEDICATIONS PRIOR TO SURGERY ?EXCEPT THE FOLLOWING Medications to discontinue per physician ____HOLD ALL VITAMINS/SUPPLEMENTS 3 DAYS PRE-OP PER ANESTHESIA Date to take last dose 12/07/23 Please no make-up, nail burmese, hairspray, perfume, deodorant, or body powder the day of surgery. No jewelry (including any body piercings) or valuables the day of surgery, leave them at home. Please take a shower or bath the night before, or the morning of, surgery with an antibacterial soap. Wear comfortable, loose fitting clothing. - Jewelry must be removed prior to entering the operating room. Rings and piercings that are not removed may be cut off. - The hospital will not accept responsibility for valuables. - Please leave all valuables, including medications, at home the day of surgery. If you are going home after surgery, a licensed drivers license examiner must drive you home. - NO public transportation without another adult if you receive anesthesia. - We recommend that an adult stay with you for 24 hours following discharge. - We also recommend that you do not drive, make important decision, drink alcoholic beverages, or take any drugs that were not prescribed by your health care provider for at least 24 hours after your discharge time. Follow any additional instructions given to you from your surgeon. If you or anyone in your household have experienced Covid symptoms in the past week, please notify your surgeon or the nurse liaison at the phone number below for possible testing. Telephone instructions given to __PATIENT and asked if any additional questions and then verbalized understanding. Patient advised to call surgeon office or pre surgery nurse liaison [phone] if any additional questions.
[2024-02-15 10:11] VITALS: BMI 32.3
--- NOTE | 2024-02-15 10:39 | PC.NURSE ---
Report to the Outpatient Waiting Room, entrance under the green pavilion located off [facility], at time ___12:30PM____ on date ___02/19/24____. Planned Procedure Time: ____2:30PM____.? Time changes happen often and if your time is changed the preop area will call you the afternoon before. - You and your visitor will be asked to self-screen and do not enter if you have any COVID symptoms. Please call surgeon if you need to reschedule. - A mask is optional within the hospital at this time. Patients may have clear liquids (water, carbonated beverages, clear teas, apple juice) until 3 hours prior to surgery with a maximum of 20 ounces. - No food from midnight until time of surgery and no smoking. Take only the following medications with a SIP of water on the morning of surgery: ____WIXELA INHALER, FLUOXETINE, EYE DROPS. MAY TAKE CODEINE OR TRAMADOL, ZOFRAN, IMITREX & ALBUTEROL INHALER OR NEBULIZER NEEDED. DO NOT STOP ANY OF YOUR OTHER PRESCRIPTION MEDICATIONS PRIOR TO SURGERY EXCEPT THE FOLLOWING Medications to discontinue per physician HOLD ALL VITAMINS/SUPPLEMENTS 3 DAYS PRE-OP PER ANESTHESIA Date to take last dose 02/15/24 Please no make-up, nail korean, hairspray, perfume, deodorant, or body powder the day of surgery.? No jewelry (including any body piercings) or valuables the day of surgery, leave them at home.? Please take a shower or bath the night before, or the morning of, surgery with an antibacterial soap.? Wear comfortable, loose fitting clothing.? Children are encouraged to wear pajamas. - Jewelry must be removed prior to entering the operating room.? Rings and piercings that are not removed may be cut off. - The hospital will not accept responsibility for valuables.? - Please leave all valuables, including medications, at home the day of surgery. If you are going home after surgery, a licensed [employer] company driver must drive you home.? - NO public transportation without another adult if you receive anesthesia. - We recommend that an adult stay with you for 24 hours following discharge. - We also recommend that you do not drive, make important decision, drink alcoholic beverages, or take any drugs that were not prescribed by your health care provider for at least 24 hours after your discharge time. For Pediatric surgeries, we recommend two adults accompany the child home. Follow any additional instructions given to you from your surgeon. Telephone instructions given to ___PATIENT and asked if any additional questions and then verbalized understanding. Patient advised to call surgeon office or pre surgery nurse liaison [phone] if any additional questions.
--- NOTE | 2024-02-19 12:59 | WPDHPUPDATE1 ---
History and Physical Update Update Date/Time: 02/19/24 12:59 History and Physical has been reviewed, including an updated exam of the patient. There are NO changes in the patient's condition. Risks, benefits, and alternatives have been discussed and questions answered. Patient agrees to proceed with procedure.
[2024-02-19 13:14] VITALS: BP 122/56; PULSE 73; RESP 16; TEMP 37.1; O2SAT 97; BMI 30.7
[2024-02-19] MEDS: LACTATED RINGERS 1,000 ML 30 ML IV CONT (13:19)
[2024-02-19 13:22] LABS: INR 1.7; Prothrombin Time 19.8 Seconds (11.1-14.7)
[2024-02-19 13:23] LABS: Partial Thromboplastin Time 35.6 Seconds (22.3-36.8)
[2024-02-19] MEDS: ACETAMINOPHEN 500 MG TABLET 1000 MG PO (13:26)
--- NOTE | 2024-02-19 13:49 | WPDANESEPPF ---
Anes - Initial Pre Proc Eval Procedure: Operation Date: 02/19/24 14:30 Proposed Procedures p Hysteroscopy Dilation and Curettage with Possible Removal of Endometrial Lesions if Necessary - Yovanny Hair MD Date/Time: 02/19/24 13:49 Surgeon: Yovanny Hair MD Pre Op Diagnosis: postmenopausal bleeding Patient Data Age: 63 Gender: F Height: 1.68 m Weight: 86.18 kg Last Vital Signs Temp 37.1 C 02/19/24 13:14 Pulse 73 02/19/24 13:14 Resp 16 02/19/24 13:14 BP 122/56 L 02/19/24 13:14 Pulse Ox 97 02/19/24 13:14 O2 Del Method Room Air 02/19/24 13:14 Allergies Allergy/AdvReac Type Severity Reaction Status Date / Time oseltamivir [From Tamiflu] Allergy Severe hallucinations, Verified 02/19/24 13:11 rash triamcinolone [From Kenalog] Allergy Rash, Verified 02/19/24 13:11 itching, swelling Home Medications Medication Instructions Recorded Confirmed Type albuterol sulfate 90 mcg/actuation 1 puff inhalation Q4H PRN 11/04/23 02/15/24 History aerosol inhaler Shortness Of Breath Or Wheezing biotin 1 mg capsule 1 mg PO DAILY 11/04/23 02/19/24 History bromfenac 0.07 % eye drops 1 drp EACH EYE DAILY 11/04/23 02/15/24 History (Prolensa) codeine phosphate 30 mg hypodermic See Rx Instructions .Route .COMPLEX 11/04/23 02/15/24 History tablet dexlansoprazole 30 mg 30 mg PO DAILY 11/04/23 02/15/24 History capsule,biphase delayed release (Dexilant) diphenhydramine HCl 25 mg capsule 25 mg PO QHS PRN Sinus Symptoms 11/04/23 02/15/24 History (Wal-Dryl Allergy) epinephrine 0.3 mg/0.3 mL 0.3 mg IM ONCE PRN Allergic 11/04/23 02/15/24 History injection, auto-injector (EpiPen) Reaction furosemide 20 mg tablet 20 mg PO DAILY 11/04/23 02/15/24 History lamotrigine 100 mg tablet 100 mg PO DAILY 11/04/23 02/15/24 History ondansetron 8 mg disintegrating 8 mg PO Q12H PRN Nausea 11/04/23 02/15/24 History tablet sumatriptan succinate 100 mg tablet See Rx Instructions PO .COMPLEX 11/04/23 02/15/24 History timolol 0.5 % eye drops 1 drp EACH EYE Q12H 11/04/23 02/15/24 History tizanidine 4 mg capsule 4 mg PO QHS PRN Muscle Spasm 11/04/23 02/15/24 History travoprost 0.004 % eye drops 1 drp EACH EYE QPM 11/04/23 02/15/24 History albuterol sulfate 5 mg/mL(0.5 %) 5 mg inhalation Q6H PRN Shortness 12/08/23 02/15/24 History solution for nebulization Of Breath Or Wheezing fluticasone 250 mcg-salmeterol 50 1 inh inhalation BID 12/08/23 02/15/24 History mcg/dose blistr powdr for inhalation (Wixela Inhub) brinzolamide 1 %-brimonidine 0.2 % 1 drp EACH EYE QAM 02/15/24 02/15/24 History eye drops,suspension (Simbrinza) dicyclomine 10 mg capsule 10 mg PO QID PRN Abdominal 02/15/24 02/15/24 History Discomfort fluoxetine 40 mg capsule 40 mg PO QAM 02/15/24 02/15/24 History tramadol 50 mg tablet 50 mg PO TID PRN Pain 02/15/24 02/15/24 History Laboratory Tests 02/19/24 12:56 PT 19.8 H Seconds (11.1-14.7) INR 1.7 APTT 35.6 Seconds (22.3-36.8) Patient hx anesthesia problems: none Family hx anesthesia problems: none Results Review: All pre-operative results and documents have been reviewed as part of the pre-operative evaluation. 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
[2024-02-19] MEDS: ceFAZolin 2 GM/D5W 50 ML 2 GM/50 ML BAG IVPB (14:29)
--- NOTE | 2024-02-19 14:46 | W.PM.PROC2 ---
Procedure Note - Detailed Date of Procedure 02/19/24 Pre-op Diagnosis postmenopausal bleeding Endometrial polyp Post-op Diagnosis Same Procedure Performed Hysteroscopy with dilation and curettage and removal of endometrial lesion with Aveta Surgeon Yovanny Hair MD Anesthesia MAC and Local Indications Postmenopausal bleeding and endometrial polyp on biopsy Findings uterus sound to 6 cm there was a small endometrial polyp in the lower posterior wall the uterine cavity the rest of the cavity lining was atrophic Description of Procedure After informed consent was obtained patient was taken to the operating room and adequate IV sedation was administered. Attention was turned to the vagina. Speculum was inserted. Single-tooth tenaculum placed on the anterior lip of the cervix. 10 cc of 1% lidocaine was injected at the cervical vaginal interface at the 2 and 5 and 8 and 10 position. The uterus was sounded to 6 cm. The cervix was dilated to an 4 Vieyra dilator. The hysteroscope was inserted into the cavity using hydrodilation. The findings were endometrial polyp. The Aveta instrument was used to remove the endometrial polyp polyp was removed completely. The hysteroscope was removed, A curettage was performed with scant tissue obtained consistent with atrophic lining, the single-tooth tenaculum was removed hemostasis was noted at the tenaculum site. Sponge count correct. The patient taken to recovery in stable condition. Estimated Blood Loss 5 Drains No Packing No Pathology Yes ( endometrial curettings and shavings) Complications No immediate complications Condition Stable Disposition Same day [facility] Billing Surgery - Charge Forward: Surgery Billing
[2024-02-19 14:50] VITALS: BP 101/54; PULSE 68; RESP 16; O2SAT 97
[2024-02-19] MEDS: LIDOCAINE HCL 1% LOCAL INJ 20 ML VIAL 10 ML INFILTRATE (14:51)
[2024-02-19 15:20] VITALS: BP 101/47; PULSE 66; RESP 16
[2024-02-19 15:45] VITALS: BP 125/65; PULSE 67; RESP 16
== END 2024-02-19 15:56 | disposition home or self-care (01) ==
PROVIDERS: Anesthesiology; PCP Family Medicine; Visit Provider Obstetrics & Gynecology
PROC: 0U5B8ZZ Destruction of Endometrium, Via Natural or Artificial Opening Endoscopic (ICD-10-PCS; CPT 58563; principal; 2024-02-19 14:30)
DX: N95.0 Postmenopausal bleeding (principal); N84.0 Polyp of corpus uteri; Z87.891 Personal history of nicotine dependence; F12.90 Cannabis use, unspecified, uncomplicated; E66.9 Obesity, unspecified; Z68.30 Body mass index [BMI] 30.0-30.9, adult
CPT/HCPCS: 58558; 36415; 85610; 85730; 88305; A9270; J0690; J2003; J2704; J3010; J7120

== ENCOUNTER 2024-12-02 08:12 | Outpatient (CLI) | payer MEDICARE, SELFPAY ==
--- OUTSIDE RECORDS SUMMARY | 2024-12-02 08:15 | XMS_ITS | Continuity of Care Document ---
Author Organization [email or web address] Address [address] [place] [phone] Phone Care Team Providers Care Program Director/Traffic Director Name Role Phone Joaquin Arevalo MD Unavailable Unavailable Allergies, Adverse Reactions, Alerts Substance Reaction Status Criticality No Known Allergies Active No Inform ation Medications Medication Instructions Dosage Effective Dates (start - stop) Status Comments vitamin B complex capsule - Active dorzolamide 2 % eye drops instill by Topical route every 2 days Not Available - Active alprazolam 0.5 mg tablet take 1 tablet b y oral route 3 times every day 0.5 MG - Active Dexilant 30 mg capsule, delayed release take 1 capsule by oral route every day - Active docusate sodium 100 mg capsule take 1 capsule by oral route every day at bedtime as needed 100 MG - Active tizanidine 4 mg capsule take 1 capsule b y oral route 3 times every day 4 MG - Active diphenhydramine 25 mg capsule take 2 capsule by oral route every 4 - 6 hours as needed 50 MG - Active Advair Diskus 250 mcg-50 mcg/dose powder for inhalation inhale 1 puff by inhalation route 2 times every day in the morning and evening approximately 12 hours apart 1.00 puff - Active codeine sulfate 30 mg tablet take 1 tablet by oral route every 6 hours as needed 30 MG - Active hydrochlorothiazide 25 mg tablet take 1 tablet by oral route every day 25 MG - Active fluoxetine 40 mg capsule take 1 capsule by oral route every day in the morning 40 MG - Active ondansetron 8 mg disintegrating tablet take 1 tablet by oral route every 8 hours for [address] on top of the tongue where it will dissolve, then swallow 8 MG - Active pilocarpine 1 % eye drops instill 1 drop by ophthalmic route every 12 hours into affected eye(s) 1.00 drop - Active prednisone 20 mg tablet take 1 tablet by oral route 2 times every day 20 MG - Active Pro Air INHALATION INHALER - Active sumatriptan 100 mg tablet take 1 tablet by oral route once with fluids as early as possible after the onset of a migraine attack;may repeat after 2 hours if headache returns, not to exceed 200mgin 24hrs 100 MG - Active timolol maleate 0.5 % eye drops instill by Topical route for 1 BID OS Not Available - Active Tirosint 25 mcg capsule take 1 capsule b y oral route every day 25 MCG - Active Travatan Z 0.004 % eye drops instill 1 drop by ophthalmic route every day into affected eye(s) in the evening 1.00 drop - Active Procedures Procedure Date Office/outpatient Visit, Est Fundus Photography W/ Report Corneal Topography No Charge Refraction Revision Of [facility] Eye Exam, New Patient IOLMaster-Technical Advance Directives Directive Yes / No Effective Date File Name No Information Encounters Encounter Description Practice Location Reason(s) For Visit Diagnoses Date Provider Providers Copied on Encounter [facility], [address] [place] [address] [address], , [id number], [phone] [place] JASPREET Professional No Information 8 Mickey Nuñez. [address], [facility], [place], [place], [id number], [place]. tel:[phone] [facility]pa [facility]ient [facility], [facility] [place] [address], , [id number], [phone] [place] Professional office visit (chief complaint) Secondary synechial angle-closure glaucoma of right eye, indeterminate stage Jul- 8 Mickey Nuñez. [address], [facility], [place], [place], [id number], [place]. tel:[phone] Referring Provider: Wilton Gilliland OD F, [address] [facility] [address], [place], [address]. tel:[phone] [facility], [address], , [id number], tel:[phone] [place] Professional YAG PI evaluation (chief complaint) Posterior synechiae (iris), right eyeSecondary synechial angle-closure glaucoma of right eye, indeterminate stageSecondar y synechial angle-closure glaucoma of left eye, indeterminate stageAge-rela candis nuclear cataract, bilateralAge- related nuclear cataract, right eye 8 Nidhi Albert. [address] [place] [facility], [address], , [id number], . tel:[phone] Referring Provider: Roosevelt Young, [address] [place] [address] [facility] [address], , [address] . tel:[phone] Family History Family Member Type Diagnosis Age At Onset Sister Problem (finding) glaucoma Mother Problem (finding) glaucoma Problem (finding) Family history of glauc tam Payers Payer name Insurance type Covered constitution party ID Authoriza tion(s) AARP Medicare Complete CI [id number] Social History Type Description Quantity Date Captured Comments Alcohol Use Details Unknown Caffeine Use Details Unknown Tobacco Use Status No Information Smoking Status No Information Sex Female Chief Complaint And Reason For Visit No Information Reason For Referral Reason For Referral No Information History Of Present Illness Encounter Date Complaint History Of Prese nt Illness office visit The 56 year old female presents for an office visit. Patient was at Dr. Gilliland office today for a follow up from YAG PI OD on 07/[address] Terrell. IOP OD was [address] Gilliland gave her drops and IOP dropped to 48. Patient has a headache. Patient states Thursday night she lost vision in OD and by next morning it was back. Patient used Atropine bid OD, Simbrinza tid OD, Dorzolamide bid ou and Timolol bid ou. YAG PI evaluation The 56 year ol d female presents for evaluation of YAG PI evaluation in the right eye and left eye. Hx of CAT OU, SUSAN OU, Acute Angle Closure Glaucoma, Glaucoma Laser OD, and Iritis OD. Pt reports mom, 3 sisters, and Grandpa have Glaucoma. Pt reports OD has been hurting since Jimmy. Pt reports no pain or irritation in OS, but it does feel tired from taking up the slack Pt reports she takes 5 different gtts. Pt reports she takes 2 in OU and 3 in OD only, but she is not sure of the name of them. Functional Status Date Functional Assessmen t No Information Instructions Date Instruction Additional Infor nella Impression/Plan Educational material provided Re lated to Posterior synechiae (iris), right eye Impression/Plan Assessments Type Assessment Date No Information Patient Care Teams Name Effective Dates (start - stop) Status Members No Information
--- OUTSIDE RECORDS SUMMARY | 2024-12-02 08:15 | XMS_ITS | Clinical Summary ---
Author Organization [facility] Address [address] [place] [address] Care Team Providers Care Middle [employer] Assistant Principal Name Role Phone Joe Stone MD Primary Care Provider Allergies Active Allergy Reactions Criticality Noted Date Comments Oseltamivir Angioedema High 09/09/2019 hallucinations Medications timolol (BETIMOL) 0.5 % ophthalmic solution Administer 1 drop into the left eye 2 (two) times a day. Active atropine 1 % ophthalmic solution Administer 1 drop into the right eye daily after dinner. Active travoprost (TRAVATAN Z) 0.004 % drops 1 drop daily. Active difluprednate (DUREZOL) 0.05 % drops 1 drop 4 (four) times a day. OD Active acetaZOLAMIDE ER (DIAMOX SEQUAL) 500 mg capsule TAKE 1 CAPSULE TWICE DAILY for two weeks 8 Active SIMBRINZA 1-0.2 % drops,suspension 8 Active PROLENSA 0.07 % drops 8 Active codeine 30 mg tablet 0 8 Active FLUoxetine (PROzac) 20 mg capsule 8 Active hydroCHLOROthiazid e (HYDRODIURIL) 25 mg tablet 8 Active HYDROCODONE-ACETAM INOPHEN ORAL TAKE 1-2 TABLETS EVERY 4-6 HOURS NEEDED FOR PAIN. 8 Active ketorolac (TORADOL) 10 mg tablet every 6 hours. 8 Active levothyroxine (SYNTHROID, LEVOTHROID) 75 mcg tablet 8 Active ondansetron ODT (ZOFRAN-ODT) 8 mg disintegrating tablet 8 Active POTASSIUM CHLORIDE ER 20 mEq CR tablet 8 Active prednisoLONE acetate (PRED FORTE) 1 % ophthalmic suspension 8 Active SUMAtriptan (IMITREX) 100 mg tabletIndications: Migraine 8 Active albuterol HFA (ProAir HFA) 90 mcg/actuation inhaler INHALE 2 PUFFS PO Q 4 HOURS PRF SHORTNESS OF BREATH OR WHEEZING 0 Active ALPRAZolam (XANAX) 0.5 mg tablet TK 1 T PO TID PRN 9 Active Dexilant 30 mg capsule TK ONE C PO QD 0 Active fluticasone propion-salmeteroL (Wixela Inhub) 250-50 mcg/dose diskus inhaler USE ONE INHALATION BID 0 Active lamoTRIgine (LaMICtal) 100 mg tablet TK 1 T PO D 0 Active lisinopriL (PRINIVIL,ZESTRIL) 10 mg tablet TK 1 T PO QD 0 Active tiZANidine (ZANAFLEX) 4 mg tablet TK 1 T PO Q 6 H PRN 0 Active docusate sodium (COLACE) 100 mg capsuleIndications :constipation Take 100 mg by mouth 2 (two) times a day Active montelukast (SINGULAIR) 10 mg tablet Take 10 mg by mouth nightly Active diphenhydrAMINE (BENADRYL) 25 mg capsule Take 25 mg by mouth every 6 (six) hours as needed for itching Active dorzolamide (TRUSOPT) 2 % ophthalmic solution 1 drop 3 (three) times a day Active omeprazole (PriLOSEC) 40 mg capsule Take 40 mg by mouth daily Active spironolactone (ALDACTONE) 100 mg tabletIndications: Cirrhosis, non-alcoholic (HCC) Take 1 tablet (100 mg total) by mouth daily 30 tablet 0 Active furosemide (LASIX) 20 mg tabletIndications: Cirrhosis, non-alcoholic (HCC) Take 2 tablets (40 mg total) by mouth daily 60 tablet 11 0 Active Active Problems Problem Noted Date Diagnosed Date Right upper quadrant pain 12/09/2019 Assessment & Plan (12/09/2019 2:38 PM CDT): She has been having right upper quadrant pain for months now. Her pain is worse with eating although no specific diet was implicated. Her pain is also worsened by constipation and relieved with proper evacuation of her bowels. It is feasible that her pain is related to with functional component or due to constipation. The other concern would be for acalculous cholecystitis or a functional gallbladder disease, considering her low gallbladder ejection fraction. She was previously evaluated by surgery who thought the risks of the surgery would outweigh the benefits given her liver cirrhosis. We will trial her on MiraLax and she will report to us what her symptoms do with more regular bowel movements. We will also schedule her for colonoscopy considering the change in her bowel habits in the fact that she is 59-year-old and has never had a colonoscopy before. Other cirrhosis of liver 12/08/2019 Overview (12/08/2019): Added automatically from request for surgery [id number] Cirrhosis, non-alcoholic 11/09/2017 Assessment & Plan (12/09/2019 2:33 PM CDT): She presents with cryptogenic cirrhosis that is likely related to FOX. She currently does not have any complications related to portal hypertension and her liver chemistries are mildly elevated. She has not had any endoscopic evaluation for the presence of esophageal varices. She also has not had any colonoscopies to screen for colon cancer. Her last imaging study in July of 2019 did not show any evidence of focal liver lesions. She will need to be followed up with ultrasound of the liver with AFP every 6 months for HCC screening. Healthy lifestyle and exercise were encouraged. She does not have confusion indicative of portosystemic encephalopathy and did not have any evidence of GI bleeding. We will continue to follow her in clinic, her MELD score is still low and would be too soon to consider liver transplant. Steatohepatitis, non-alcoholic 11/09/2017 Hypothyroid 11/09/2017 Mild intermittent asthma 11/09/2017 Essential hypertension 11/09/2017 Abnormal LFTs 11/09/2017 Thrombocytopenia 11/09/2017 Hypersplenia 11/09/2017 BMI 33.0-33.9,adult 11/09/2017 Primary open angle glaucoma (POAG) of right eye, severe stage 10/08/2017 Assessment & Plan (01/26/2018 1:39 PM CDT): Intraocular pressure was 14 in the right eye and 18 in the left eye using Applanation. - Intraocular pressure (IOP) goal < 18mmHg - needs yearly Rice visual field (HVF)/oct F/U locally for MRx and routine monitoring Surgical History Surgery Date Site/Laterality Comments BACK SURGERY KNEE ARTHROSCOPY Left CYST REMOVAL Medical History Medical History Date Comments Hyperlipidemia GERD (gastroesophageal reflux disease) Liver disease Asthma Depression Glaucoma Cataract Arthritis Family History Medical History Relation Name Comments Cancer Sister Relation Name Status Comments Sister Social History Tobacco Use Types Packs/Day Years Used Date Smoking Tobacco: Former Cigarettes Smokeless Tobacco: Never Alcohol Use Standard Drinks/Week Comments Yes 0 (1 standard drink = 0.6 oz pur e alcohol) rare Personal Safety Answer Date Recorded Getting School Help Needed Not on file Comments No Sex and Gender Information Value Date Recorded Sex Assigned at Not on file 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 Gender Identity Not on file Sexual Orientation Not on file Obstetrics History Last Filed Vital Signs Vital Sign Reading Time Taken Comments Blood Pressure 157/67 01/13/2020 3:45 PM CDT Pulse 83 01/13/2020 3:45 PM CDT Temperature 36.1 C (97 F) 01/13/2020 3:25 PM CDT Respiratory Rate 16 01/13/2020 3:45 PM CDT Oxygen Saturation 98% 01/13/2020 3:45 PM CDT Inhaled Oxygen Concentration - - Weight 79.5 kg (175 lb 3.2 oz) 12/08/2019 4:25 P M CDT Height 167.6 cm (5' 6) 12/08/2019 4:25 PM CDT Body Mass Index 28.28 12/08/2019 4:25 PM CDT Plan of Treatment Not on file Insurance [id number] MEDICARE ADVANTAGE [facility] Address: [address] [place], [place] [id number] [facility] MEDICARE Address: [address] [address] [address] [facility] MEDICARE Address: [address] [address] [place] [address] Advance Directives For more information, please contact: [phone] * Full Code (Latest Code Status on File) Date Activated Date Inactivated Comments 01/13/2020 2:15 PM 01/13/2020 7:58 PM Care Teams Middle School Assistant Principal Relationship Specialty Start Date End Date Joe Stone MD PCP - General 07/24/17
--- OUTSIDE RECORDS SUMMARY | 2024-12-02 08:15 | XMS_ITS | Clinical Summary ---
Author Organization [facility] Paola Deshpande Address [address] [place] [address] Care Team Providers Care Process Controller Name Role Phone Cam Laura MD Primary Care Provider [phone] Allergies Active Allergy Reactions Criticality Noted Date Comments Oseltamivir Angioedema High 09/09/2019 hallucinations Medications albuterol sulfate (ProAir RespiClick) 90 mcg/actuation metered powder inhaler Inhale 2 puffs every 4 hours by inhalation route. Active Biotin 10,000 mcg Capsule Take by oral route. Active codeine sulfate 30 mg tablet Take 30 mg by mouth 3 times daily as needed. 4 Active diphenhydrAMINE (BENADRYL) 25 mg capsule Take 25 mg by mouth every 6 hours as needed. Active docusate sodium (COLACE) 100 mg capsule Take 100 mg by mouth 2 times daily. Active EPINEPHrine (EPIPEN) 0.3 mg/0.3 mL Auto-Injector Take by injection route. Active lamoTRIgine (LaMICtal) 100 mg tablet Take 100 mg by mouth daily. Active ondansetron (ZOFRAN ODT) 8 mg Tablet, Rapid Dissolve Place 1 tablet twice a day by translingual route. Active SUMAtriptan (IMITREX) 100 mg tablet Take 100 mg by mouth. Active timolol hemihydrate (BetimoL) 0.5% solution 1 Drop 2 times daily. Active tiZANidine (ZANAFLEX) 4 mg Tablet Take 4 mg by mouth. Active travoprost (TRAVATAN Z) 0.004 % solution 1 Drop daily. Active brinzolamide (AZOPT) 1 % suspension 1 Drop every 8 hours. Active dexlansoprazole (DEXILANT) 30 mg capsule Take 30 mg by mouth daily. Active fluticasone propion-salmete roL (ADVAIR DISKUS,WIXELA INHUB) 250-50 mcg/dose disk inhaler Take 1 Puff by inhalation 2 times daily. Active furosemide (LASIX) 20 mg tablet Take 20 mg by mouth daily. Active spironolactone (ALDACTONE) 100 mg tablet Take 100 mg by mouth daily. Active FLUoxetine (PROzac) 20 mg tablet Take 20 mg by mouth daily. Active Active Problems No known active problems Encounters Date Type Department Care Team Description 11/30/2024 Orders Only [facility] Oncology and Hematology [facility] [address] [place] [address] Carlo Henderson MD Thrombocytopenia (Primary Dx) 11/23/2024 Telephone [facility] Oncology [facility] Hematology [facility] [address] [place] [address] Carlo Henderson MD Surgical Clearance Questions 11/23/2024 Telephone [facility] Oncology and Hematology [facility] [address] [place] [address] Carlo Henderson MD Surgical Questions 11/16/2024 External Device Data ST[facility] ABSTRACTION Provider, Abstract 11/16/2024 External Device Data [facility] ABSTRACTION Provider, Abstract 11/15/2024 External Device Data [facility] ABSTRACTION Provider, Abstract 10/25/2024 External Device Data [facility] ABSTRACTION Provider, Abstract 09/27/2024 External Device Data [place] ABSTRACTION Provider, Abstract 09/20/2024 External Device Data [place] ABSTRACTION Provider, Abstract from Last 3 Months Family History Medical History Relation Name Comments No Known Problems Brother No Known Problems Father No Known Problems Mother No Known Problems Sister 1 No Known Problems Sister 2 Breast Cancer Sister 3 Relation Name Status Comments Brother Father Mother Sister 1 Sister 2 Alive Sister 3 Alive Social History Tobacco Use Types Packs/Day Years Used Date Smoking Tobacco: Former Cigarettes 1 18 1 05/04/1975 - 03/04/1994 Smokeless Tobacco: Never Tobacco Cessation:Counseling Given: Not Answered Alcohol Use Standard Drinks/Week Comments Yes 0 (1 standard drink = 0.6 oz pur e alcohol) Socially Comments Unknown Sex and Gender Information Value Date Recorded Sex Assigned at Not on file Legal Sex Female 7:45 AM CDT Gender Identity Not on file Sexual Orientation Not on file Last Filed Vital Signs Vital Sign Reading Time Taken Comments Blood Pressure 172/93 01/22/2024 12:22 PM CDT Pulse 105 01/22/2024 12:22 PM CDT Temperature 36.8 C (98.2 F) 01/22/2024 12:22 PM CDT Respiratory Rate 20 01/22/2024 12:22 PM CDT Oxygen Saturation 93% 01/22/2024 12:22 PM CDT Inhaled Oxygen Concentration - - Weight 91.2 kg (201 lb) 01/22/2024 12:22 PM CDT Height 167.6 cm (5' 6) 12/28/2023 11:17 AM CDT Body Mass Index 32.44 12/28/2023 11:17 AM CDT Plan of Treatment Upcoming Encounters Date Type Department Care Team (Late st Contact Info) Description 12/02/2024 9:00 AM CDT Office Visit [facility] Oncology and Hematology [facility] [address] [place] [address] [address] [place] [address] Carlo Henderson MD [address] [facility] [address] [place] [address] Health Maintenance Due Date Last Done Comments Pre-Diabetes and Diabetes Screening 1960 DTAP/TDAP/TD VACCINES (1 - Tdap) 1977 PNEUMOCOCCAL VACCINE 50+ YEA RS (1 of 2 - PCV) 1977 BREAST CANCER SCREENING 1998 FIT-DNA Q 3 years 08/15/2003 FIT/FOBT Q 1 year 08/15/2003 Flex Sig/CT Colonography Q 5 years 08/15/2003 ZOSTER VACCINE (1 of 2) 2008 RSV VACCINE (60+ or ) (1 - Risk 60-74 years 1-dose series) 2018 OSTEOPOROSIS SCREENING 08/15/2023 INFLUENZA VACCINE (#1) 2024 COLORECTAL SCREENING 01/12/2030 01/13/2020, 01/13/20 20 Colorectal Cancer Screening 01/12/2030 Insurance [facility] [id number] Care Teams Process Controller Relationship Specialty Start Date End Date Cam Laura MD [address] [place] [phone] PCP - General Family Practice 12/28/23
--- OUTSIDE RECORDS SUMMARY | 2024-12-02 08:15 | XMS_ITS | Referral Summary ---
Author Organization 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
--- OUTSIDE RECORDS SUMMARY | 2024-12-02 08:15 | XMS_ITS | Encounter Summary ---
Author Organization [facility] Address [address] [place] [address] Care Team Providers Care Ep Tech Name Role Phone Joe Stone MD Primary Care Provider Encounter Details Date Type Department Care Team (Late st Contact Info) Description 08/21/2021 Lab Requisition [facility] D[facility] Lab [address] [place] [address] Joe Stone MD [address] [place] [address] Social History Tobacco Use Types Packs/Day Years Used Date Smoking Tobacco: Former Cigarettes Q uit: 09/09/1995 Smokeless Tobacco: Never Comments Unknown Sex and Gender Information Value Date Recorded Sex Assigned at Not on file 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 Gender Identity Not on file Sexual Orientation Not on file documented as of this encounter Plan of Treatment Not on file documented as of this encounter Procedures Procedure Name Priority Date/Time Associated Diagnosis Comments DERMATOPATHOLOGY Routine 08/20/2021 12:0 0 AM CDT documented in this encounter Results * DERMATOPATHOLOGY (08/20/2021 12:00 AM CDT) Case Report Dermatopathology Report Case: [id number] Authorizing Provider: Joe Stone MD Collected: 08/20/2021 12:00 AM Ordering Location: [facility] DermPath Lab Received: 08/21/2021 02:19 PM Pathologist: Jesus Ferreira MD Specimens: A) - Skin, right low back B) - Skin, left chest 5:40 PM CDT DERMATOPATHOLOGY LABORATORY Final Diagnosis Specimen A. SKIN, right low back: INTRADERMAL MELANOCYTIC NEVUS (D22.5) PRESENT AT MARGIN Specimen B. SKIN, left chest: INTRADERMAL MELANOCYTIC NEVUS (D22.5) PRESENT AT MARGIN 2 5:40 PM CDT DERMATOPATHOLOGY LABORATORY at 1740 CDT Clinical History A-B: Changing lesion. Check margins. 5:40 PM CDT DERMATOPATHOLOGY LABORATORY Gross Description Specimen A: Received is one formalin filled container labeled with the patient's name and designated right low back. The specimen consists of a shave biopsy measuring [id number]. The margin is inked green. Jar 0. Specimen B: Received is one formalin filled container labeled with the patient's name and designated left chest. The specimen consists of a shave biopsy measuring [id number]. The margin is inked green. Jar 0. 2 5:40 PM CDT DERMATOPATHOLOGY LABORATORY Microscopic Description Specimen A. SKIN, right low back: There are nests of cytologically bland melanocytes within the dermis that mature with depth. This lesion is present at the margin of the specimen. Specimen B. SKIN, left chest: There are nests of cytologically bland melanocytes within the dermis that mature with depth. This lesion is present at the margin of the specimen. 2 5:40 PM CDT DERMATOPATHOLOGY LABORATORY Disclaimer An external and internal positive and negative controls are appropriate for the histochemical, immunohistochemical and immunofluorescence stain(s) in this case (if any), except where stated explicitly. The performance characteristics of the stain(s) cited in this report were developed and its performance characteristic determined by the Dermatopathology Laboratory at [facility], directed by Dr. Arleen Ferreira. These tests need not be, and therefore are not, approved by the [place] Food and Drug Administration. The tests are used for clinical purposes. Billing Codes Specimen Charges Stain Charges 83442 [id number] 1 1 2 5:40 PM CDT DERMATOPATHOLOGY LABORATORY Embedded Images 2 5:40 PM CDT DERMATOPATHOLOGY LABORATORY Pathology/Cytology TISSUE SPECIMEN FROM SKIN / Unknown 08/20/2021 08/21/2021 2:19 PM CDT Miscellaneous samples (specimen) TISSUE SPECIMEN FROM SKIN / Unknown 08/20/2021 08/21/2021 2:19 PM CDT us Joe Stone MD LAB - PATHOLOGY/CYTOLOGY [facility]A Final Result DERMATOPATHOLOGY LABORATORY [facility] - Department of Dermatology [facility] [address] [place] [address], [address] [phone] documented in this encounter Visit Diagnoses Not on filedocumented in this encounter Care Teams Ep Tech Relationship Specialty Start Date End Date Joe Stone MD [address] [place] [phone] PCP - General Family Medicine 08/29/19 documented as of this encounter
--- OUTSIDE RECORDS SUMMARY | 2024-12-02 08:15 | XMS_ITS | Clinical Summary ---
Author Organization [facility] Address [address] [place] [address] Care Team Providers Care Diabetes Manager Name Role Phone Joe Stone MD Primary Care Provider [phone] Source Comments [facility],non-owned Affiliates and Associated Physician Practices is amultiple site organization consisting of ambulatory clinics and hospital sitesin [place], [place], [place] and [place]. This disclosure is being madepursuant to the Care Everywhere program and may not contain all information available regarding this patient. Last updated 18.[facility] Allergies Active Allergy Reactions Criticality Noted Date Comments Tamiflu Angioedema High 09/09/2019 hallucinations Medications * Be aware that medications may not be up to date on this document. Alwaysverify current medications with the patient. albuterol (PROVENTIL;VENT GILES) (2.5 MG/3ML) 0.083% nebulizer solution USE 1 VIAL IN NEBULIZER Q 4 HOURS PRF SHORTNESS OF BREATH OR WHEEZING 0 Active PROAIR HFA 108 (90 Base) MCG/ACT inhaler INHALE 2 PUFFS PO Q 4 HOURS PRF SHORTNESS OF BREATH OR WHEEZING 0 Active ALPRAZolam (XANAX) 0.5 MG tablet TK 1 T PO TID PRN 9 Active WIXELA INHUB 250-50 MCG/DOSE inhaler USE ONE INHALATION BID 0 Active SIMBRINZA 1-0.2 % ophthalmic suspension SHAKE LQ AND INT 1 GTT IN OU QAM 9 Active PROLENSA 0.07 % opthalmic solution INT 1 GTT IN OU QD 0 Active travoprost, EDISON free, (TRAVATAN Z) 0.004 % ophthalmic solution INT 1 GTT IN OS QD HS 0 Active DEXILANT 30 MG capsule TK ONE C PO D 0 Active codeine 30 MG tablet TK 1 TO 2 TS PO TID PRF PAIN 0 Active FLUoxetine (PROZAC) 20 MG capsule TK 2 CS PO QD 0 Active HYDROcodone-shane taminophen (NORCO) 5-325 MG tablet TK 1 T PO Q 8 HOURS PRF PAIN 0 Active lamoTRIgine (LAMICTAL) 100 MG tablet TK 1 T PO D 0 Active levothyroxine (SYNTHROID) 75 MCG tablet TK 1 T PO QD 9 Active lisinopril (PRINIVIL; ZESTRIL) 10 MG tablet TK 1 T PO QD 0 Active SUMAtriptan (IMITREX) 100 MG tablet 0 Active tiZANidine (ZANAFLEX) 4 MG tablet TK 1 T PO Q 6 H PRF MUSCLE SPASTICITY 0 Active Active Problems Problem Noted Date Diagnosed Date Abnormal LFTs 11/09/2017 Overview (09/09/2019): Images from the original note were not included. 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 CT abd Cirrhosis portal HTN Cirrhosis, non-alcoholic 11/09/2017 Essential hypertension 11/09/2017 Acquired hypothyroidism 11/09/2017 Family History Medical History Relation Name Comments CAD (Coronary Artery Disease) Father Cancer - Breast Sister 1 Migraine Sister 2 Aneurysm, Brain Sister 3 Relation Name Status Comments Brother Alive Father Mother Sister 1 Alive Sister 2 Alive Sister 3 Social History Tobacco Use Types Packs/Day Years Used Date Smoking Tobacco: Former Cigarettes Q uit: 09/09/1995 Smokeless Tobacco: Never Comments Unknown Sex and Gender Information Value Date Recorded Sex Assigned at Not on file 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 Gender Identity Not on file Sexual Orientation Not on file Plan of Treatment Health Maintenance Due Date Last Done Comments BONE DENSITY TESTING 1960 COLOGUARD (AGES 45-75) - COL ON CA SCREENING 1958 COLON MONITORING 1958 COLONOSCOPY - COLON CA SCREENING 1958 CT COLONOGRAPHY - COLON CA SCREENING 1960 Colorectal Cancer Screening 1958 FIT - COLON CA SCREENING 1958 FLEX SIG - COLON CA SCREENING 1958 LIPID TESTING 1958 MAMMOGRAM 1958 HEPATITIS C SCREENING 08/09/1976 DTAP/TDAP/TD VACCINES (1 - Tdap) 1977 PNEUMOCOCCAL VACCINE 50+ (1 of 2 - PCV) 1977 ZOSTER VACCINE (1 of 2) 2008 HEPATITIS B VACCINE (1 of 3 - Risk 3-dose series) 2018 Respiratory Syncytial Virus (RSV) Vaccine Pt: or over 60 yrs (1 - Risk 60-74 years 1-dose series) 2018 COVID-19 VACCINE (1 - 2023-2 5 season) 2024 DEPRESSION SCREENING 05/04/2024 MEDICARE AWV CALENDAR YEAR 2024 INFLUENZA VACCINE (#1) 2025 HIB VACCINE Aged Out No longer eligi ble based on patient's age to complete this topic HPV VACCINE Aged Out No longer eligi ble based on patient's age to complete this topic MENINGOCOCCAL (Group B) VACC INE SHARED DECISION-MAKING Aged Out No longer eligibl e based on patient's age to complete this topic MENINGOCOCCAL GROUPS A/C/Y/W VACCINE Aged Out No longer eligible b ased on patient's age to complete this topic Insurance [employer] MANAGED MEDICARE ADV SELF PAY NO INSURANCE Member Subscriber Plan / Payer (Ef fective for All Dates) Name:Melissa Gallo Member ID:Not on file Relation to Subscriber:Not on file Name:MELISSA GALLO Subscriber ID:Not on file (Home) Address: [address] [place] [phone] Payer ID:Not on file Group ID:Not on file Type:Self Pay Address: [facility] MANAGED MEDICARE ADV MANAGED MEDICARE ADV Care Teams Diabetes Manager Relationship Specialty Start Date End Date Joe Stone MD [address] [place] [address] PCP - General Family Medicine 4/27/20
[2024-12-02 08:30] LABS: Hematocrit 37.9 % (37.0-47.0); Hemoglobin 12.8 g/dL (12.0-15.0); Immature Granulocyte Percent A 0.2 % (0-0.5); Immature Platelet Fraction Pct 2.6 % (0.9-11.2); Lymphocytes Absolute Auto 1.32 K/mm3 (0.9-3.2); Mean Corpuscular HGB Conc 33.8 g/dl (32-36); Mean Corpuscular Hemoglobin 32.6 pg (26-34); Mean Corpuscular Volume 96.4 fl (80-100); Nucleated Red Blood Cells Absolute Auto 0.000 K/mm3 (0.0-0.012); Nucleated Red Blood Cells Perc 0.0 % (0.0-0.2); Platelet Count Result 112 k/mm3 (150-375); Red Blood Count 3.93 M/mm3 (4.2-5.4); White Blood Count 5.6 K/mm3 (4.5-10.0)
[2024-12-02 08:31] LABS: Blood Urea Nitrogen 6 mg/dL (8-26); Carbon Dioxide 21 mmol/L (22-30); Chloride 107 mmol/L (98-109); Estimated Glomerular Filt Rate > 60; Glucose 103 mg/dL (70-105); Ionized Calcium (POC) 1.23 mmol/L (1.11-1.31); Potassium 3.7 mmol/L (3.5-4.9); Sodium 140 mmol/L (138-146)
== END 2024-12-02 08:13 | disposition home or self-care (01) ==
LOC: ANHLAB 08:13
PROVIDERS: PCP Family Medicine; Visit Provider Internal Medicine Hematology & Oncology
DX: D69.6 Thrombocytopenia, unspecified (principal)
CPT/HCPCS: 36415; 80047; 85025; 85055